=== PATIENT | female | born 1965 | race Caucasian/White ===

== ENCOUNTER 2023-04-17 14:20 | Outpatient (REF) | payer OTHER, SELFPAY ==
[2023-04-20 05:34] LABS: HPV mRNA E6/E7 rflx Not Detected (Not Detected)
== END 2023-04-17 14:21 | disposition home or self-care (01) ==
LOC: HO.LNP 14:20
PROVIDERS: PCP Nurse Practitioner Family; Visit Provider Obstetrics & Gynecology
DX: Z12.4 Encounter for screening for malignant neoplasm of cervix (principal); Z11.51 Encounter for screening for human papillomavirus (HPV); N95.0 Postmenopausal bleeding
CPT/HCPCS: 87624; 88142; 99202

== ENCOUNTER 2023-04-29 13:48 | Outpatient (REF) | payer OTHER, SELFPAY ==
--- NOTE | ~2023-04-29 | US_ITS ---
EXAMINATION: US PELVIS CLINICAL INFORMATION: Postmenopausal bleeding COMPARISON: None available. TECHNIQUE: Ultrasound of the pelvis is performed using both transabdominal and transvaginal transducers along with Doppler. Transvaginal imaging is performed due to inadequate visualization transabdominally. FINDINGS: The uterus is anteverted and measures 10.8 x 7.3 x 7 cm in dimension. There is a large central echogenic lesion in the body of the uterus suggestive of a submucosal fibroid. This measures 6 x 5.6 x 6.2 cm. No other focal uterine lesion in the endometrium is obscured due to fibroid. The ovaries are not seen. There is no fluid in the pelvis. US/US pelvic and transvaginal IMPRESSION: Limited exam. 6 cm central echogenic uterine body lesion probably representing a submucosal fibroid. Endometrium and ovaries not seen.
== END 2023-04-29 13:49 | disposition home or self-care (01) ==
LOC: HO.HMGCX 13:48
PROVIDERS: PCP Nurse Practitioner Family; Visit Provider Obstetrics & Gynecology
DX: N95.0 Postmenopausal bleeding (principal)
CPT/HCPCS: 76830; 76856

== ENCOUNTER 2023-05-21 15:38 | Outpatient (REF) | payer OTHER, SELFPAY ==
--- NOTE | ~2023-05-21 | MM_ITS ---
EXAMINATION: MM SCREENING DIGITAL BREAST TOMOSYNTHESIS, BILATERAL CLINICAL INFORMATION: Screening. Asymptomatic. The lifetime risk of breast cancer based on the Tyrer-Cuzick Model is 5.9%. COMPARISON: Mammography: Baseline exam. No prior. TECHNIQUE: Digital breast tomosynthesis is performed in both the craniocaudal and mediolateral oblique views along with computer-aided detection (CAD). Synthesized 2D images are generated from the tomosynthesis. FINDINGS: The breasts are almost entirely fatty (ACR BI-RADS breast composition Category a). Within the left breast, upper outer quadrant, anterior one third, there is a 9 mm circumscribed mass for which ultrasound is recommended. There is otherwise no suspicious calcifications, mass, or region of architectural distortion in either breast. MM/MM tomosynthesis screening BI IMPRESSION: 9 mm mass in the upper outer left breast anterior one third as detailed. Diagnostic ultrasound recommended for further evaluation. No suspicious finding in the right breast. ASSESSMENT: BI-RADS BI-RADS 0 - Incomplete: Needs additional Imaging. RECOMMENDATION: 1. Targeted left breast ultrasound upper outer quadrant anterior one third. 2. Radiology department staff will contact the patient for additional imaging. Additional Imaging required This examination should not preclude the clinical evaluation of a suspicious palpable abnormality. This patient's information was entered into a reminder system with a target due date for their next mammogram.
== END 2023-05-21 15:39 | disposition home or self-care (01) ==
LOC: HO.MAMMO 15:38
PROVIDERS: PCP Nurse Practitioner Family; Visit Provider Obstetrics & Gynecology
DX: Z12.31 Encounter for screening mammogram for malignant neoplasm of breast (principal)
CPT/HCPCS: 77063; 77067

== ENCOUNTER → 2023-05-21 16:00 | Outpatient (BNV) | payer OTHER, SELFPAY | PROVIDERS: PCP Nurse Practitioner Family; Visit Provider Radiology Diagnostic Radiology | DX: Z12.31 Encounter for screening mammogram for malignant neoplasm of breast (principal) | CPT/HCPCS: 77063; 77067 ==

== ENCOUNTER 2023-05-23 10:37 | Outpatient (AMB) | payer OTHER, SELFPAY ==
--- NOTE | 2023-05-23 10:38 | MHC.OFFVIS ---
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 Sister Hemochromatosis Daughter Overdose Maternal Grandmother Myocardial infarction Office Procedures Endometrial Biopsy Details: The patient was counseled regarding the indication and benefits of endometrial sampling to rule out endometrial pathology including not limited to endometrial hyperplasia or endometrial cancer and others; The alternatives (Either do nothing vs. hysteroscopy D&C) & the risks were discussed with the patient including but not limited: pain, uterine perforation, bleeding, infection, possible injury to bladder, bowel, ureter, possible need for blood transfusion with all its possible risks. The patient verbalized understanding all questions answered and signed consent. The patient was placed into the dorsal lithotomy position; a speculum was inserted in the vagina. Using aseptic technique for the procedure, the cervix was cleansed with Betadine. The anterior lip of the cervix was grasped with a single tooth tenaculum. The uterus was sounded to 9 cm with a 4 mm Pipelle was used. Tissues samples were obtained and placed in formalin, in a patient labeled container and sent to the pathology department. At the end of the procedure, there was minimal bleeding noted The patient tolerated the procedure well and was discharged in good condition with the following instructions: Nothing in the vagina until the bleeding stops. No sex until the bleeding stops, to call if any of the following occurs: fever (>100.4), flu-like symptoms, abdominal pain, heavy bleeding, four smelling vaginal discharge. The patient was instructed to schedule a Follow up appointment in 2 weeks to discuss pathology results of the biopsy and treatment options. This note was generated with a voice recognition program. Some errors may have been overlooked during the review of this note. Sometimes these errors may affect the content or meaning of a given sentence. [id number] Biopsy Assessment & Plan Assessment & Plan Orders: Orders AMB Endometrial Biopsy Today N95.0 - Postmenopausal bleeding Coding Level of Care Code Procedure Only Diagnoses CPT Codes Endometrial Biopsy - CPT: 40535-Zoptjoejikp Biopsy ([id number])
[2023-05-23 10:42] VITALS: BP 142/100; BMI 42.9
== END 2023-05-23 11:06 | disposition home or self-care (01) ==
LOC: HO.HWS 10:37
PROVIDERS: PCP Nurse Practitioner Family; Visit Provider Obstetrics & Gynecology
DX: N95.0 Postmenopausal bleeding (principal)
CPT/HCPCS: 58100

== ENCOUNTER 2023-05-23 10:37 | Outpatient (REF) | payer OTHER, SELFPAY | END 2023-05-23 10:38 | disposition home or self-care (01) | LOC: HO.LNP 10:37 | PROVIDERS: PCP Nurse Practitioner Family; Visit Provider Obstetrics & Gynecology | DX: N95.0 Postmenopausal bleeding (principal) | CPT/HCPCS: 58100; 88305 ==

== ENCOUNTER 2023-06-04 09:04 | Outpatient (AMB) | payer OTHER, SELFPAY ==
[2023-06-04 09:09] VITALS: BP 138/89; BMI 42.8
--- NOTE | 2023-06-04 09:09 | A.OFFVIS_ITS ---
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 The pathology showed the following: Endometrium, biopsy:? Superficial strips of benign endometrial and endocervical epithelium; abundant blood. Pelvic ultrasound showed the following: The uterus is anteverted and measures 10.8 x 7.3 x 7 cm in dimension. There is a large central echogenic lesion in the body of the uterus suggestive of a submucosal fibroid. This measures 6 x 5.6 x 6.2 cm. No other focal uterine lesion in the endometrium is obscured due to fibroid. The ovaries are not seen. There is no fluid in the pelvis. PFSH Surgical History H/O gastric bypass Family History Father Hypertension Mother No problems noted. Sister Hemochromatosis Daughter Overdose Maternal Grandmother Myocardial infarction Female Reproductive History Menstrual control method: none Date of last pap smear: 04/18/23 Review of Systems Const All systems reviewed & are unremarkable except as noted in HPI and below Reports as per HPI and Reports no additional complaints GI Reports no additional complaints Reports no additional complaints Physical Exam Vital Signs: Last Vital Signs BP 138/89 06/04/23 09:09 BMI result Body Mass Index 42.8 Assessment & Plan Assessment & Plan (1) Postmenopausal bleeding: Code(s): N95.0 - Postmenopausal bleeding Plan: Discussed with the patient the results of the endometrial biopsy showing benign endometrium. Discussed with the patient the sensitivity, specificity, positive and negative predictive value, of endometrial biopsy in detecting endometrial pathology including but not limited to endometrial hyperplasia, cancer and other pathology; instructed the patient to call in case is vaginal bleeding bleeding recurs, the next step will be to proceed with a diagnostic hysteroscopy/D&C for further endometrial sampling evaluation to rule out endometrial pathology. All questions answered and the patient verbalized understanding and agreed with the plan. (2) Uterine myoma: Code(s): D25.9 - Leiomyoma of uterus, unspecified Plan: Discussed with the patient the findings on pelvic ultrasound & the risk of myosarcoma; discussed with the patient the options of treatment including expectant management versus hysterectomy; the pros and cons, risks benefits of each approach were discussed with the patient including the fact that in cases of myosarcoma, surgical treatment can lead to early diagnosis and positively affects the prognosis; after further discussion, the patient decided to proceed with expectant management. Will repeat pelvic ultrasound in 3 months. Instructions given to patient to call in case any of the following occurs: pressure symptoms, abnormal uterine bleeding, pelvic pain; and to schedule a 3 my office ultrasound follow-up appointment . All questions answered, the patient verbalized understanding and agreed with the plan . Orders: Orders US pelvic and transvaginal Today D25.9 - Leiomyoma of uterus, unspecified Coding Level of Care Code Est Pt Level 3 (85832) Diagnoses Postmenopausal bleeding N95.0 Uterine myoma D25.9
== END 2023-06-04 09:19 | disposition home or self-care (01) ==
LOC: HO.HWS 09:04
PROVIDERS: PCP Nurse Practitioner Family; Visit Provider Obstetrics & Gynecology
DX: N95.0 Postmenopausal bleeding (principal); D25.9 Leiomyoma of uterus, unspecified
CPT/HCPCS: 99213

== ENCOUNTER → 2023-06-04 09:04 | Outpatient (BNVA) | payer OTHER, SELFPAY | PROVIDERS: PCP Nurse Practitioner Family; Visit Provider Obstetrics & Gynecology | DX: N95.0 Postmenopausal bleeding (principal); D25.9 Leiomyoma of uterus, unspecified | CPT/HCPCS: 99212 ==

== ENCOUNTER → 2023-06-12 08:00 | Outpatient (BNV) | payer OTHER, SELFPAY | PROVIDERS: PCP Nurse Practitioner Family; Visit Provider Radiology Diagnostic Radiology | DX: N63.21 Unspecified lump in the left breast, upper outer quadrant (principal) | CPT/HCPCS: 76642 ==

== ENCOUNTER 2023-06-12 08:56 | Outpatient (REF) | payer OTHER, SELFPAY ==
--- NOTE | ~2023-06-12 | US_ITS ---
EXAMINATION: US DIAGNOSTIC ULTRASOUND BREAST, LEFT CLINICAL INFORMATION: Follow-up circumscribed small mass left breast anterior aspect 1:00 seen on baseline screening exam. COMPARISON: Screening mammography 05/21/2023. No prior ultrasound. TECHNIQUE: Ultrasound of the left breast is performed with real-time beltre scale imaging and color Doppler, with attention to the 1:00 axis. FINDINGS: Within the 1:00 axis of the left breast, approximately 6 cm from the nipple, there is an oval circumscribed hypoechoic mass with a hyperechoic fatty hilum measuring 7 x 3 x 9 mm, most consistent with a benign intramammary lymph node. No suspicious features are evident. This correlates well with the mammographic focus of concern. No additional abnormalities noted. Results were discussed directly with the patient at time of the visit. US/US breast LT limited mamm only IMPRESSION: Probably benign intramammary lymph node left breast 1:00 axis.Out of an abundance of caution, a 6 month interval follow-up left breast ultrasound recommended to ensure stability. ASSESSMENT: BI-RADS 3: Probably Benign RECOMMENDATION: Diagnostic sonography in 6 months.
== END 2023-06-12 08:57 | disposition home or self-care (01) ==
LOC: HO.MAMMO 08:56
PROVIDERS: PCP Nurse Practitioner Family; Visit Provider Obstetrics & Gynecology
DX: N63.22 Unspecified lump in the left breast, upper inner quadrant (principal)
CPT/HCPCS: 76642

== ENCOUNTER 2023-06-13 08:59 | Outpatient (AMB) | payer OTHER, SELFPAY ==
[2023-06-13 09:14] VITALS: BP 140/82; PULSE 70; O2SAT 98; BMI 41.0
--- NOTE | 2023-06-13 09:14 | MHC.PC.OV ---
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 Pt used to see Dr. Farah. Corporate Safety Director Required: No Accompanied by: Self / Same As Patient Allergies No Known Allergies Allergy (Verified 06/13/23 09:30) Medication List - Last Reconciled 06/13/23 by CLARA Acosta buprenorphine-naloxone 8-2 mg (Suboxone) 20 mg sublingual DAILY Tobacco use date assessed: 06/13/23 Dental Screening Dental Screen Date: 06/13/23 Did you have a dental visit in the last 12 months?: No Did you have a dental problem in the last 6 months where you did not have access to dental care?: No Was dental information given to patient?: Yes HPI HPI Comments History of Present Illness Details 57-year-old female past medical history significant for hypertension, opiate abuse and uterine myoma. Previous patient of Dr. Winters last seen 3 years ago presents today to reestablish care. Patient previously underwent bariatric surgery in [address] Peña at [facility]. Patient reports that she never went for skin removal surgery following this. Patient reports that time she does get rashes underneath her pannis. Patient states in the process of trying to diet and exercise to decrease her BMI and would like to discuss referral for skin removal in the future. Patient reports past history of opiate abuse Percocets and did try heroin, patient has been on Suboxone for about 8 years currently follows with healthy living clinic. Review of the notes patient currently being followed by Dr. Pnieda obstetrics gynecology physician for postmenopausal bleeding and uterine myoma. Patient reports has been out of her blood pressure medication for quite some time and has been sharing her significant other's blood pressure med as a are both on the same medication. Refill sent on HCTZ 25 mg daily. Mammogram: It is 06/05 which required additional imaging IMPRESSION: Probably benign intramammary lymph node left breast 1:00 axis.Out of an abundance of caution, a 6 month interval follow-up left breast ultrasound recommended to ensure stability. ? ASSESSMENT:? BI-RADS 3: Probably Benign Eye exam: Recommended every couple years Patient reports has never had colonoscopy screening, referral entered to gastroenterology for colonoscopy. [facility] Medical History (Updated 06/13/23 @ 09:51 by CLARA Acosta) Hypertension Opioid abuse Surgical History H/O gastric bypass Family History (Updated 06/13/23 @ 09:33 by CLARA Acosta) Father Hypertension Mother No problems noted. Sister Hemochromatosis Daughter Overdose Paternal Grandmother Myocardial infarction Social History (Updated 06/13/23 @ 09:35 by CLARA Acosta) Housing: Apartment Alcohol intake: current Alcohol intake frequency: holidays/special occasions only Patient Tobacco Use Status: Former Tobacco user Tobacco use type: Cigarette e-Cigarette/Vaping Use: Never Used service: No Current occupational status: unemployed Cognitive needs: No Hearing needs: No Vision needs: No Questionnaire PHQ-9 Over the last 2 weeks, how often have you been bothered by any of the following problems? 1. Little interest or pleasure in doing things: not at all 2. Feeling down, depressed, or hopeless: not at all 3. Trouble falling or staying asleep, or sleeping too much: not at all 4. Feeling tired or having little energy: not at all 5. Poor appetite or overeating: not at all 6. Feeling bad about yourself - or that you are a failure or have let yourself or your family down: not at all 7. Trouble concentrating on things, such as reading the newspaper or watching television: not at all 8. Moving or speaking so slowly that other people could have noticed. Or the opposite - being so fidgety or restless that you have been moving around a lot more than usual: not at all 9. Thoughts that you would be better off or of hurting yourself in some way: not at all Total score: 0 Depression Screening Interpretation: Negative 69487 - PHQ-9 Billing: Yes Source: Developed by Drs. Damon Rock, Dionne Ahmadi, Rishabh Rascon and colleagues, with an educational myesha from [employer]. Thrive Questionnaire Date Thrive assessed: 06/13/23 I am a: Patient What is your living situation today?: I have a steady place to live Within the past 12 months, did the food you bought not last and you didn't have the money to get more?: Never true Within the past 12 months, did you worry whether your food would run out before you got money to buy more?: Never true Do you have trouble paying for medicines?: No Do you have trouble getting transportation to medical appointments?: No Do you have trouble paying your heating and electricity bill?: No Do you have trouble taking care of your child, family member or friend?: No Do you have trouble with day-to-day activities such as bathing, preparing meals, shopping, managing finances, etc.?: No Are you currently unemployed and looking for a job?: No Are you interested in more education?: No Please select the resources that you would like help with: None Currently or been in a relationship where the following occur: no concerns reported AUDIT C Alcohol Use Questionnaire (AUDIT-C) 1. How often do you have a drink containing alcohol?: Never 3. How often do you have six or more drinks on one occasion?: Never Total Score: 0 SAUL-7 AMB Questionnaire SAUL-7 Date SAUL - 7 assessed: 06/13/23 Feeling nervous, anxious, or on edge: 0 = Not at all Not being able to stop or control worryin = Not at all Worrying too much about different things: 0 = Not at all Trouble relaxin = Not at all Being so restless that it is hard to sit still: 0 = Not at all Becoming easily annoyed or irritable: 0 = Not at all Feeling afraid as if something awful might happen: 0 = Not at all Total SAUL-7 score (0-4 normal; 5-9 mild; 10-14 moderate; 15-21 severe): 0 Source: Developed by Drs. Damon Rock, Dionne Ahmadi, Rishabh Rascon and colleagues, with an educational myesha from [employer]. SAUL-7 Assessment Billing SAUL-7 Assessment Tool: SAUL-7 Assessment 52137 Review of Systems Const Denies chills, Denies fatigue, Denies fever(s) and Denies poor appetite Eyes Denies no additional complaints ENT Reports Normal hearing present Card Denies chest pain, Denies syncope, Denies rapid heart rate and Denies dyspnea Resp Denies cough and Denies dyspnea GI Denies change in stool character, Denies constipation, Denies diarrhea, Denies nausea and Denies vomiting Denies urinary frequency, Denies dysuria and Denies urinary urgency Neuro Reports Normal hearing present, Denies confusion and Denies syncope Psych Denies confusion Endo Denies fatigue Physical exam (Primary Care) Vital Signs: Last Vital Signs Pulse 70 06/13/23 09:14 BP 140/82 H 06/13/23 09:14 Pulse Ox 98 06/13/23 09:14 Oxygen Delivery Method Room Air 06/13/23 09:14 BMI result Body Mass Index 41.0 Tobacco/Smoking Status: Tobacco use Status Tobacco use date assessed 06/13/23 06/13/23 09:24 Patient Tobacco Use Status Former Tobacco user 06/13/23 09:35 Tobacco use type Cigarette 06/13/23 09:35 e-Cigarette/Vaping Use Never Used 06/13/23 09:35 PHQ-9: PHQ-9 Score PHQ-9: Total score 0 06/13/23 09:36 Depression Screening Interpretation: Negative Thrive Assessment: Date of Thrive Assessment Date Thrive assessed 06/13/23 06/13/23 09:24 Currently or been in a relationship where the following occur: no concerns reported Const General: No confusion Orientation/consciousness: No confusion HENMT Head: Yes normocephalic and Yes atraumatic Eyes Conjunctivae: conjunctivae normal Chest Chest palpation & inspection: normal inspection of the chest Resp Effort & Inspection: normal respiratory effort Auscultation: clear to auscultation bilaterally, no crackles, no rhonchi and no wheezes Cardio Rate: regular rate Rhythm: regular rhythm Heart sounds: S1 normal heart sound present and S2 normal heart sound present GI Inspection: Yes normal to inspection General: Yes no CVA tenderness Back/Spine/Pelvis Back: no CVA tenderness Neuro General: No confusion Cranial nerves: Yes Normal hearing present Extrem General: No edema Assessment and Plan Assessment & Plan (1) Hypertension: Code(s): I10 - Essential (primary) hypertension Plan: Hydrochlorothiazide 25 mg daily sent to patient's pharmacy. Follow low-salt diet and exercise. (2) Uterine myoma: Code(s): D25.9 - Leiomyoma of uterus, unspecified (3) Morbid obesity with BMI of 40.0-44.9, adult: Code(s): E66.01 - Morbid (severe) obesity due to excess calories; Z68.41 - Body mass index [BMI] 40.0-44.9, adult Plan: Diet and exercise to reduce BMI. Plan Follow-up in 3 for physical exam Orders: Orders Complete Blood Count Auto Diff Today Z13.0 - Encounter for screening for diseases of the blood and blood-forming organs and certain disorders involving the immune mechanism Comprehensive Harrison. Panel Fast Today I10 - Essential (primary) hypertension Lipid Panel Today Z13.220 - Encounter for screening for lipoid disorders TSH reflex Free T4 Today Z13.29 - Encounter for screening for other suspected endocrine disorder Referrals Gastroenterology Referral Z12.11 - Encounter for screening for malignant neoplasm of colon Medications: New hydrochlorothiazide 25 mg PO DAILY 30 tabs 3RF I10 - Essential (primary) hypertension Coding Level of Care Code New Pt Level 3 (50893) Diagnoses Hypertension I10 Uterine myoma D25.9 Morbid obesity with BMI of 40.0-44.9, adult E66.01; Z68.41 Additional Codes SAUL-7 Assessment Billing - SAUL-7 Assessment Tool: SAUL-7 Assessment 08836 ([id number])
== END 2023-06-13 09:45 | disposition home or self-care (01) ==
PROVIDERS: PCP Nurse Practitioner Family; Visit Provider Nurse Practitioner Family
DX: I10 Essential (primary) hypertension (principal); D25.9 Leiomyoma of uterus, unspecified; E66.01 Morbid (severe) obesity due to excess calories; Z68.41 Body mass index [BMI] 40.0-44.9, adult
CPT/HCPCS: 99203

== ENCOUNTER 2023-07-30 12:46 | Outpatient (AMB) | payer OTHER, SELFPAY ==
--- NOTE | 2023-07-30 12:53 | A.OFFVIS_ITS ---
Intake Vital Signs 07/30/23 12:55 Height 5 ft 5 in Weight 243 lb BMI 40.4 BP 144/74 H Intake Visit Reasons: vaginal bleeding Sanitation Director Required: No Information Interpreted: non-clinical & clinical Extrusion Technician: Extrusion Technician Present (Aidyn) Allergies No Known Allergies Allergy (Verified 07/30/23 12:57) Is last menstrual period known: No Post menopausal: Yes Patient : No HPI HPI Comments History of Present Illness Details Presenting with recurrence of postmenopausal bleeding. Ultrasound done in 05/05 showed the following: The uterus is anteverted and measures 10.8 x 7.3 x 7 cm in dimension. There is a large central echogenic lesion in the body of the uterus suggestive of a submucosal fibroid. This measures 6 x 5.6 x 6.2 cm. No other focal uterine lesion in the endometrium is obscured due to fibroid. The ovaries are not seen. There is no fluid in the pelvis Endometrial biopsy done in 06/05 showed the following: Superficial strips of benign endometrial and endocervical epithelium; abundant blood Last co testing was done in 05/05 was negative PFSH Medical History Opioid abuse Hypertension Surgical History H/O gastric bypass Family History Father Hypertension Mother No problems noted. Sister Hemochromatosis Daughter Overdose Paternal Grandmother Myocardial infarction Social History Housing: Apartment Alcohol intake: current Alcohol intake frequency: holidays/special occasions only Patient Tobacco Use Status: Former Tobacco user Tobacco use type: Cigarette e-Cigarette/Vaping Use: Never Used Patient : No service: No Current occupational status: unemployed Cognitive needs: No Hearing needs: No Vision needs: No Female Reproductive History Menstrual control method: none Physical Exam Vital Signs: Last Vital Signs BP 144/74 H 07/30/23 12:55 BMI result Body Mass Index 40.4 Office Procedures Endometrial Biopsy Details: The patient was counseled regarding the indication and benefits of endometrial sampling to rule out endometrial pathology including not limited to endometrial hyperplasia or endometrial cancer and others; The alternatives (Either do nothing vs. hysteroscopy D&C) & the risks were discussed with the patient including but not limited: pain, uterine perforation, bleeding, infection, possible injury to bladder, bowel, ureter, possible need for blood transfusion with all its possible risks. The patient verbalized understanding all questions answered and signed consent. The patient was placed into the dorsal lithotomy position; a speculum was inserted in the vagina. Using aseptic technique for the procedure, the cervix was cleansed with Betadine. The anterior lip of the cervix was grasped with a single tooth tenaculum. The uterus was sounded to 7 cm with a 4 mm Pipelle was used. Tissues samples were obtained and placed in formalin, in a patient labeled container and sent to the pathology department. At the end of the procedure, there was minimal bleeding noted The patient tolerated the procedure well and was discharged in good condition with the following instructions: Nothing in the vagina until the bleeding stops. No sex until the bleeding stops, to call if any of the following occurs: fever (>100.4), flu-like symptoms, abdominal pain, heavy bleeding, four smelling v aginal discharge. The patient was instructed to schedule a Follow up appointment in 2 weeks to discuss pathology results of the biopsy and treatment options. This note was generated with a voice recognition program. Some errors may have been overlooked during the review of this note. Sometimes these errors may affect the content or meaning of a given sentence. [id number]-Ldmuuuhbmae Biopsy Assessment & Plan Assessment & Plan (1) Postmenopausal bleeding: Comment: 6.2 cm submucosal myoma by ultrasound Code(s): N95.0 - Postmenopausal bleeding Plan: Repeat ultrasound to compare the size of previous myoma and treat accordingly. Instructions given the patient to schedule ultrasound follow-up appointment. Recommended to the patient that the next step is repeat endometrial sampling via hysteroscopy D&C possible polypectomy versus endometrial biopsy to r/o endometrial pathology including hyperplasia or cancer. All the pros and cons risks and benefits of each approach were discussed with the patient, endometrial biopsy being less invasive, office procedure withinability diagnose a polyp/myoma and removal versus hysteroscopy done under anesthesia more invasive , and possibility of diagnosing and endometrial polyp with the possibility of polypectomy/myomectomy. All questions were answered pt verbalized understanding and decided to proceed with endometrial biopsy. EMB done, see procedure Orders: Orders AMB Endometrial Biopsy Today N95.0 - Postmenopausal bleeding Coding Level of Care Code Est Pt Level 3 (30951) Procedure Only Diagnoses Postmenopausal bleeding N95.0 CPT Codes Endometrial Biopsy - CPT: 47855-Xmyegfhfpuu Biopsy ([id number])
[2023-07-30 12:55] VITALS: BP 144/74; BMI 40.4
== END 2023-07-30 13:33 | disposition home or self-care (01) ==
PROVIDERS: PCP Nurse Practitioner Family; Visit Provider Obstetrics & Gynecology
DX: N95.0 Postmenopausal bleeding (principal)
CPT/HCPCS: 58100; 99213

== ENCOUNTER 2023-07-30 12:46 | Outpatient (REF) | payer OTHER, SELFPAY | END 2023-07-30 12:47 | disposition home or self-care (01) | LOC: HO.LNP 12:46 | PROVIDERS: PCP Nurse Practitioner Family; Visit Provider Obstetrics & Gynecology | DX: N95.0 Postmenopausal bleeding (principal); D25.9 Leiomyoma of uterus, unspecified | CPT/HCPCS: 58100; 88305; 99212 ==

== ENCOUNTER 2023-07-31 15:44 | Outpatient (REF) | payer OTHER, SELFPAY ==
--- NOTE | ~2023-07-31 | US_ITS ---
EXAMINATION: US PELVIS CLINICAL INFORMATION: Leiomyoma of uterus, unspecified COMPARISON: Pelvic ultrasound 04/29/2023 TECHNIQUE: Ultrasound of the pelvis is performed using both transabdominal and transvaginal transducers along with Doppler. Transvaginal imaging is performed due to inadequate visualization transabdominally. FINDINGS: Uterus: The uterus is anteverted and measures 11.3 x 7.8 x 9.0. There is a large central echogenic lesion in the body the uterus consistent with a submucosal fibroid. This measures 6.4 x 6.3 x 6.4 cm, previously measured 6.0 x 5.6 x 6.2 cm, difference in size likely technical in origin. The endometrium is as obscured by the large fibroid.: The ovaries are not seen. There is no free fluid within the pelvis. US/US pelvic and transvaginal IMPRESSION: 6.4 cm central echogenic uterine body lesion, most likely representing a submucosal fibroid. The endometrium and ovaries are not seen.
== END 2023-07-31 15:45 | disposition home or self-care (01) ==
LOC: HO.US 15:44
PROVIDERS: PCP Nurse Practitioner Family; Visit Provider Obstetrics & Gynecology
DX: D25.9 Leiomyoma of uterus, unspecified (principal)
CPT/HCPCS: 76830; 76856

== ENCOUNTER 2023-09-17 13:22 | Outpatient (AMB) | payer OTHER, SELFPAY ==
--- NOTE | 2023-09-17 13:34 | A.OFFVIS_ITS ---
Intake Vital Signs 09/17/23 13:38 Height 5 ft 5 in Weight 242 lb 8.136 oz BMI 40.4 BP 120/70 Intake Visit Reasons: US Follow up Conveyor Mechanic Required: No Information Interpreted: non-clinical & clinical Accompanied by: Daughter Allergies No Known Allergies Allergy (Verified 09/17/23 13:39) Post menopausal: Yes HPI HPI Comments History of Present Illness Details Presenting for ultrasound follow-up and endometrial biopsy. The pathology showed the following: Predominantly blood with scant strips of benign inactive endometrium and benign endocervical glandular epithelium (see comment). Comment: Although no atypia or carcinoma is seen, the tissue is very scant and may not be equal opportunity representative of the endometrium Pelvic ultrasound repeated in 08/05 showed the following: Uterus: The uterus is anteverted and measures 11.3 x 7.8 x 9.0. There is a large central echogenic lesion in the body the uterus consistent with a submucosal fibroid. This measures 6.4 x 6.3 x 6.4 cm, previously measured 6.0 x 5.6 x 6.2 cm, difference in size likely technical in origin. The endometrium is as obscured by the large fibroid.: The ovaries are not seen. There is no free fluid within the pelvis. [facility] Medical History Opioid abuse Hypertension Surgical History H/O gastric bypass Family History Father Hypertension Mother No problems noted. Sister Hemochromatosis Daughter Overdose Paternal Grandmother Myocardial infarction Social History Housing: Apartment Alcohol intake: current Alcohol intake frequency: holidays/special occasions only Patient Tobacco Use Status: Former Tobacco user Tobacco use type: Cigarette e-Cigarette/Vaping Use: Never Used service: No Current occupational status: unemployed Cognitive needs: No Hearing needs: No Vision needs: No Review of Systems Const All systems reviewed & are unremarkable except as noted in HPI and below Reports as per HPI and Reports no additional complaints GI Reports no additional complaints Reports no additional complaints Physical Exam Vital Signs: Last Vital Signs BP 120/70 09/17/23 13:38 BMI result Body Mass Index 40.4 Office Procedures Endometrial Biopsy Details: The patient was counseled regarding the indication and benefits of endometrial sampling to rule out endometrial pathology including not limited to endometrial hyperplasia or endometrial cancer and others; The alternatives (Either do nothing vs. hysteroscopy D&C) & the risks were discussed with the patient including but not limited: pain, uterine perforation, bleeding, infection, possible injury to bladder, bowel, ureter, possible need for blood transfusion with all its possible risks. The patient verbalized understanding all questions answered and signed consent. The patient was placed into the dorsal lithotomy position; a speculum was inserted in the vagina. Using aseptic technique for the procedure, the cervix was cleansed with Betadine. The anterior lip of the cervix was grasped with a single tooth tenaculum. The uterus was sounded to 7 cm with a 4 mm Pipelle was used. Tissues samples were obtained and placed in formalin, in a patient labeled container and sent to the pathology department. At the end of the procedure, there was minimal bleeding noted The patient tolerated the procedure well and was discharged in good condition with the following instructions: Nothing in the vagina until the bleeding stops. No sex until the bleeding stops, to call if any of the following occurs: fever (>100.4), flu-like symptoms, abdominal pain, heavy bleeding, four smelling va ginal discharge. The patient was instructed to schedule a Follow up appointment in 2 weeks to discuss pathology results of the biopsy and treatment options. This note was generated with a voice recognition program. Some errors may have been overlooked during the review of this note. Sometimes these errors may affect the content or meaning of a given sentence. [id number] Biopsy Assessment & Plan Assessment & Plan (1) Uterine myoma: Code(s): D25.9 - Leiomyoma of uterus, unspecified Plan: Discussed with the patient the results of the ultrasound and the size of the myomas has mild increased in size with possible technical error in measurement. Discussed with the patient risk of myosarcoma and symptoms that are caused by myomas including but not limited to pelvic pain, pressure symptoms, abnormal uterine bleeding. In addition discussed with the patient options of treatment for myomas including: Serial ultrasounds periodically to follow-up on the size of the myoma versus surgical treatment including hysterectomy. All pros and cons, risks and benefits of all options were discussed with the patient. The patient understands that delay in surgical treatment in case of myosarcoma can affect her prognosis, after further discussion, the patient decided to think about it and get back to us next visit (2) Postmenopausal bleeding: Comment: EMB with scant tissue may not be equal opportunity representative of the endometrial cavity Code(s): N95.0 - Postmenopausal bleeding Plan: Discussed with the patient the results the pathology showing scant tissues and might not be equal opportunity representative of the endometrial cavity, recommended repeat endometrial sampling via office EMB versus hysteroscopy D&C possible polypectomy myomectomy. All pros and cons, risks and benefits of each approach were discussed with the patient, the patient decided to proceed with endometrial biopsy. EMB done, see procedure note. Orders: Orders AMB Endometrial Biopsy Today N95.0 - Postmenopausal bleeding Coding Level of Care Code Est Pt Level 3 (62810) Procedure Only Diagnoses Uterine myoma D25.9 Postmenopausal bleeding N95.0 CPT Codes Endometrial Biopsy - CPT: 36096-Ihispikeshb Biopsy ([id number])
[2023-09-17 13:38] VITALS: BP 120/70; BMI 40.4
== END 2023-09-17 14:24 | disposition home or self-care (01) ==
PROVIDERS: PCP Nurse Practitioner Family; Visit Provider Obstetrics & Gynecology
DX: D25.9 Leiomyoma of uterus, unspecified (principal); N95.0 Postmenopausal bleeding
CPT/HCPCS: 58100; 99213

== ENCOUNTER 2023-09-17 13:22 | Outpatient (REF) | payer OTHER, SELFPAY | END 2023-09-17 13:23 | disposition home or self-care (01) | LOC: HO.LNP 13:22 | PROVIDERS: PCP Nurse Practitioner Family; Visit Provider Obstetrics & Gynecology | DX: N95.0 Postmenopausal bleeding (principal); D25.9 Leiomyoma of uterus, unspecified | CPT/HCPCS: 58100; 88305; 99212 ==

== ENCOUNTER 2023-10-17 07:45 | Outpatient (AMB) | payer OTHER, SELFPAY ==
--- NOTE | 2023-10-17 07:47 | MHC.OFFVIS ---
Intake Vital Signs 10/17/23 07:51 Height 5 ft 5 in Weight 242 lb 8.136 oz BMI 40.4 BP 120/68 Intake Visit Reasons: EMB Results Allergies No Known Allergies Allergy (Verified 09/17/23 13:39) HPI HPI Comments History of Present Illness Details Presenting for follow-up post EMB doing well with no complaints. The pathology showed the following: Endometrium, biopsy: Superficial fragments of benign endometrium and few strips of endocervical epithelium within normal limits; abundant blood; no atypia identified PFSH Medical History Opioid abuse Hypertension Surgical History H/O gastric bypass Family History Father Hypertension Mother No problems noted. Sister Hemochromatosis Daughter Overdose Paternal Grandmother Myocardial infarction Social History Housing: Apartment Alcohol intake: current Alcohol intake frequency: holidays/special occasions only Patient Tobacco Use Status: Former Tobacco user Tobacco use type: Cigarette e-Cigarette/Vaping Use: Never Used service: No Current occupational status: unemployed Cognitive needs: No Hearing needs: No Vision needs: No Review of Systems Const All systems reviewed & are unremarkable except as noted in HPI and below Reports as per HPI and Reports no additional complaints GI Reports no additional complaints Reports no additional complaints Physical Exam Vital Signs: Last Vital Signs BP 120/68 10/17/23 07:51 BMI result Body Mass Index 40.4 Assessment & Plan Assessment & Plan (1) Postmenopausal bleeding: Code(s): N95.0 - Postmenopausal bleeding Plan: Discussed with the patient the results of the endometrial biopsy showing benign endometrium. Discussed with the patient the sensitivity, specificity, positive and negative predictive value, of endometrial biopsy in detecting endometrial pathology including but not limited to endometrial hyperplasia, cancer and other pathology; instructed the patient to call in case is vaginal bleeding bleeding recurs, the next step will be to proceed with a diagnostic hysteroscopy/D&C for further endometrial sampling evaluation to rule out endometrial pathology. All questions answered and the patient verbalized understanding and agreed with the plan. Coding Level of Care Code Est Pt Level 3 (26070) Diagnoses Postmenopausal bleeding N95.0
[2023-10-17 07:51] VITALS: BP 120/68; BMI 40.4
== END 2023-10-17 10:15 | disposition home or self-care (01) ==
PROVIDERS: PCP Nurse Practitioner Family; Visit Provider Obstetrics & Gynecology
DX: N95.0 Postmenopausal bleeding (principal)
CPT/HCPCS: 99213

== ENCOUNTER → 2023-10-17 07:45 | Outpatient (BNVA) | payer OTHER, SELFPAY | PROVIDERS: PCP Nurse Practitioner Family; Visit Provider Obstetrics & Gynecology | DX: N95.0 Postmenopausal bleeding (principal) | CPT/HCPCS: 99212 ==

== ENCOUNTER 2023-12-17 10:44 | Outpatient (REF) | payer OTHER, SELFPAY ==
--- NOTE | ~2023-12-17 | US_ITS ---
EXAMINATION: US DIAGNOSTIC ULTRASOUND BREAST, LEFT CLINICAL INFORMATION: Follow-up left breast probable benign intramammary lymph node 1:00 axis, 6 cm from the nipple, seen on prior exam. COMPARISON: 06/12/2023 left breast targeted ultrasound, and 05/21/2023 bilateral mammography. TECHNIQUE: Ultrasound of the breast is performed with real-time beltre scale imaging and color Doppler. FINDINGS: Within the left breast, 1:00 axis, 6 cm from the nipple, there is a stable benign appearing intramammary lymph node measuring 7 x 4 x 11 mm, with prominent normal fatty hilum, and non-thickened cortex. This is completely unchanged from the prior examination. Results are provided to the patient at time of visit by the technologist. US/US breast LT limited mamm only IMPRESSION: Stable benign intramammary lymph node left breast 1:00 axis. No findings suspicious for malignancy. Finding is benign, no further follow-up recommended. Recommend the patient resume routine annual screening mammography. ASSESSMENT: BI-RADS 2: Benign RECOMMENDATION: Routine annual mammography screening. This patient's information was entered into a reminder system with a target due date for their next mammogram.
== END 2023-12-17 10:45 | disposition home or self-care (01) ==
LOC: HO.MAMMO 10:44
PROVIDERS: PCP Nurse Practitioner Family; Visit Provider Obstetrics & Gynecology
DX: N63.21 Unspecified lump in the left breast, upper outer quadrant (principal)
CPT/HCPCS: 76642

== ENCOUNTER → 2023-12-17 11:00 | Outpatient (BNV) | payer OTHER, SELFPAY | PROVIDERS: PCP Nurse Practitioner Family; Visit Provider Radiology Diagnostic Radiology | DX: N60.82 Other benign mammary dysplasias of left breast (principal) | CPT/HCPCS: 76642 ==

== ENCOUNTER 2024-01-13 09:48 | Outpatient (AMB) | payer OTHER, SELFPAY ==
[2024-01-13 09:50] VITALS: BP 120/70; BMI 40.3
--- NOTE | 2024-01-13 09:50 | A.OFFVIS_ITS ---
Intake Vital Signs 01/13/24 09:50 Height 5 ft 5 in Weight 242 lb BMI 40.3 BP 120/70 Intake Visit Reasons: PMB Intake Note: PMB on 01/09/24 Thermometer Tester: Thermometer Tester Present ([place]) Allergies No Known Allergies Allergy (Verified 01/13/24 09:50) Post menopausal: Yes HPI HPI Comments History of Present Illness Details Presenting complaining of an episode of vaginal bleeding occur few days ago followed by continue spotting. Last EMB was done in 10/05, the pathology report showed the following: Endometrium, biopsy: Superficial fragments of benign endometrium and few strips of endocervical epithelium within normal limits; abundant blood; no atypia identified Last ultrasound was done in 08/05, showed the following: Uterus: The uterus is anteverted and measures 11.3 x 7.8 x 9.0. There is a large central echogenic lesion in the body the uterus consistent with a submucosal fibroid. This measures 6.4 x 6.3 x 6.4 cm, previously measured 6.0 x 5.6 x 6.2 cm, difference in size likely technical in origin. The endometrium is as obscured by the large fibroid.: The ovaries are not seen. There is no free fluid within the pelvis. Last co testing was done in 05/05 was negative PFSH Medical History Opioid abuse Hypertension Surgical History H/O gastric bypass Family History Father Hypertension Mother No problems noted. Sister Hemochromatosis Daughter Overdose Paternal Grandmother Myocardial infarction Social History Housing: Apartment Alcohol intake: current Alcohol intake frequency: holidays/special occasions only Patient Tobacco Use Status: Former Tobacco user Tobacco use type: Cigarette e-Cigarette/Vaping Use: Never Used service: No Current occupational status: unemployed Cognitive needs: No Hearing needs: No Vision needs: No Review of Systems Const All systems reviewed & are unremarkable except as noted in HPI and below Physical Exam Vital Signs: Last Vital Signs BP 120/70 01/13/24 09:50 BMI result Body Mass Index 40.3 General: Yes no CVA tenderness External Female Exam: normal external appearance and normal appearance of the urethra Speculum Exam - Vagina: normal appearance of the vagina, normal palpation, no lesions and no masses Speculum Exam - Cervix: normal appearance of the cervix, normal palpation, no lesions, no masses and nontender Bimanual exam- vagina & uterus: normal bimanual exam, normal palpation, uterine size normal, normal palpation, uterine shape normal, No Cervical tenderness present and non-tender Bimanual Exam- Adnexa, other: normal adnexae Back/Spine/Pelvis Back: no CVA tenderness Results AMB Urinalysis, Automated UA Leukoctes 0 Jannet/uL Last Edit by HILDA Herring on 01/13/24 10:02 UA Nitrite Negative Last Edit by Geneva Kruger Bobbi on 01/13/24 10:02 UA Urobilinogen 0 mg/dL Last Edit by Geneva Kruger Bobbi on 01/13/24 10:0 2 UA Protein 0 mg/dL Last Edit by HILDA Herring on 01/13/24 10:02 UA pH 7.5 Last Edit by Geneva Kruger [facility] on 01/13/24 10:02 UA Blood 0 Abdoul/uL Last Edit by HILDA Herring on 01/13/24 10:02 UA Specific [place] 1.010 Last Edit by HILDA Herring on 01/13/24 10:02 UA Ketone Negative Last Edit by HILDA Herring on 01/13/24 10:02 UA Bilirubin 0 mg/dL Last Edit by Geneva Kruger Bobbi on 01/13/24 10:02 UA Glucose 0 mg/dL Last Edit by Geneva Kruger [facility] on 01/13/24 10:02 Results Reviewed Results Reviewed: Laboratory Last Values Urine pH (Auto) 7.5 01/13/24 10:01 Specific [place] (Auto) 1.010 01/13/24 10:01 Urine Protein (Auto) 0 mg/dL 01/13/24 10:01 Glucose (UA)(Auto) 0 mg/dL 01/13/24 10:01 Urine Ketones (Auto) Negative 01/13/24 10:01 Urine Blood (Auto) 0 Abdoul/uL 01/13/24 10:01 Urine Nitrite (Auto) Negative 01/13/24 10:01 Urine Bilirubin (Auto) 0 mg/dL 01/13/24 10:01 Urine Urobilinogen (Auto) 0 mg/dL 01/13/24 10:01 Leukocyte Esterase (Auto) 0 Jannet/uL 01/13/24 10:01 Assessment & Plan Assessment & Plan (1) Postmenopausal bleeding: Comment: Recurrent Code(s): N95.0 - Postmenopausal bleeding Plan: Discussed with the patient the differential diagnosis of post menopausal bleeding with normal pelvic exam including but not limited to, endometrial hyperplasia, cancer, polyps and other causes; recommended pelvic ultrasound & an endometrial sampling via hysteroscopy D&C possible polypectomy versus endometrial biopsy to r/o endometrial pathology including hyperplasia or cancer. All the pros and cons risks and benefits of each approach were discussed with the patient, endometrial biopsy being less invasive office procedure with less sensitivity and inability diagnose a polyp and removal versus hysteroscopy done under anesthesia more invasive more sensitive to endometrial cancer and possibility of diagnosing and endometrial polyp with the possibility of polypectomy. All questions were answered pt verbalized understanding and decided to think about it and get back to us next visit . Instructed the patient to schedule an ultrasound follow-up appointment in 2 weeks. Orders: Orders AMB Urinalysis Automated Today Z13.9 - Encounter for screening, unspecified US pelvic and transvaginal Today N95.0 - Postmenopausal bleeding Coding Level of Care Code Est Pt Level 3 (92812) Diagnoses Postmenopausal bleeding N95.0
== END 2024-01-13 10:46 | disposition home or self-care (01) ==
PROVIDERS: PCP Nurse Practitioner Family; Visit Provider Obstetrics & Gynecology
DX: N95.0 Postmenopausal bleeding (principal); Z13.9 Encounter for screening, unspecified
CPT/HCPCS: 99213

== ENCOUNTER → 2024-01-13 09:48 | Outpatient (BNVA) | payer OTHER, SELFPAY | PROVIDERS: PCP Nurse Practitioner Family; Visit Provider Obstetrics & Gynecology | DX: N95.0 Postmenopausal bleeding (principal) | CPT/HCPCS: 81003; 99212 ==

== ENCOUNTER 2024-01-21 13:19 | Outpatient (REF) | payer OTHER, SELFPAY ==
--- NOTE | ~2024-01-21 | US_ITS ---
EXAMINATION: US PELVIS COMPLETE CLINICAL INFORMATION: Postmenopausal bleeding COMPARISON: Pelvic ultrasound 07/31/2023 TECHNIQUE: Transabdominal and transvaginal imaging was performed. FINDINGS: The uterus is enlarged measuring 13.8 x 8.1 x 9.6 cm. A dominant transmural myoma with a submucosal component measuring 7.2 cm previously 6.4 cm. Nabothian cysts in the cervix. There is moderate volume of fluid within the endometrial canal. The endometrium appears irregularly thickened measuring up to 0.8 cm a more discrete 9 mm nodule in the fundal aspect of the endometrium. The ovaries were not identified sonographically. No adnexal mass. There is no pelvic free fluid. US/US pelvic and transvaginal IMPRESSION: 1. The endometrium appears irregularly thickened and nodular measuring up to 0.8 cm, which can be seen in the setting of endometrial carcinoma or endometrial hyperplasia with a more discrete 9 mm nodule in the fundal aspect of the endometrium, which may be related to the underlying etiology of the thickening or reflect a superimposed polyp. Recommend gynecologic referral for consideration of tissue sampling. 2. A dominant transmural myoma with a submucosal component measuring 7.2 cm. 3. The ovaries were not identified sonographically. The findings and recommendations were discussed with Nadege Goncalves LPN at the office of ordering provider Armando Pineda, at 1:56 PM 01/29/2024 with read back confirmation and it was ascertained that the content and urgency of the report was understood at the time of direct communication.
== END 2024-01-21 13:20 | disposition home or self-care (01) ==
LOC: HO.US 13:19
PROVIDERS: PCP Nurse Practitioner Family; Visit Provider Obstetrics & Gynecology
DX: N95.0 Postmenopausal bleeding (principal)
CPT/HCPCS: 76830; 76856

== ENCOUNTER 2024-01-30 13:19 | Outpatient (AMB) | payer OTHER, SELFPAY ==
--- NOTE | 2024-01-30 13:32 | A.OFFVIS_ITS ---
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 Pelvic ultrasound done recently showed the following: IMPRESSION: 1. The endometrium appears irregularly thickened and nodular measuring up to 0.8 cm, which can be seen in the setting of endometrial carcinoma or endometrial hyperplasia with a more discrete 9 mm nodule in the fundal aspect of the endometrium, which may be related to the underlying etiology of the thickening or reflect a superimposed polyp. Recommend gynecologic referral for consideration of tissue sampling. 2. A dominant transmural myoma with a submucosal component measuring 7.2 cm. 3. The ovaries were not identified sonographically. Last office EMB was done in 10/05 showed the following: Superficial fragments of benign endometrium and few strips of endocervical epithelium within normal limits; abundant blood; no atypia identified Last co testing done in 05/05 was negative PFSH Medical History Opioid abuse Hypertension Surgical History H/O gastric bypass Family History Father Hypertension Mother No problems noted. Sister Hemochromatosis Daughter Overdose Paternal Grandmother Myocardial infarction Social History Housing: Apartment Alcohol intake: current Alcohol intake frequency: holidays/special occasions only Patient Tobacco Use Status: Former Tobacco user Tobacco use type: Cigarette e-Cigarette/Vaping Use: Never Used service: No Current occupational status: unemployed Cognitive needs: No Hearing needs: No Vision needs: No Female Reproductive History Menstrual Date of last menstrual period: 08/11/20 Total pregnancies: 2 Full term: 2 Review of Systems Card Reports as per HPI and Reports no additional complaints Resp Reports as per HPI and Reports no additional complaints GI Reports as per HPI and Reports no additional complaints Reports as per HPI Physical Exam Const General: cooperative, healthy appearing and comfortable Resp Effort & Inspection: normal respiratory effort Auscultation: clear to auscultation bilaterally Percussion: percussion normal Cardio Palpation: normal PMI Rate: regular rate Rhythm: regular rhythm Heart sounds: no murmurs and no rubs Peripheral pulses: Peripheral pulses 2+ throughout GI Inspection: Yes normal to inspection Palpation (GI): Soft to palpation, nontender, no guarding, not rigid and No hepatosplenomegaly present Percussion: Yes normal to percussion Auscultation: normal bowel sounds Rectal Exam - Female: deferred Assessment & Plan Assessment & Plan (1) Postmenopausal bleeding: Comment: Recurrent Abnormal endometrium by ultrasound Large myoma with submucosal component Code(s): N95.0 - Postmenopausal bleeding Category: Medical Plan: Discussed with the patient the results of the ultrasound showing large myoma with submucosal component and an abnormal endometrium with possible endometrial polyp, recommended hysteroscopy D&C possible polypectomy/myomectomy. Discussed with the patient the procedure , all benefits and risks including but not limited to inability to complete the procedure , insufficient endometrial tissue for a complete evaluation of the endometrial cavity , bleeding, infection, possible need for blood transfusion with all its risk ( HIV,syphilis, Hepatitis, anaphylaxis shock, others..), injury to bladder, rectum, possible need for laparoscopy/laparotomy or hysterectomy. The patient verbalized understanding and signed the consent. Instructions given the patient to schedule a 2 week postoperative appointment (2) Uterine myoma: Code(s): D25.9 - Leiomyoma of uterus, unspecified Category: Medical Plan: Discussed with the patient the results of the ultrasound and the increase in the size of the myomas. Discussed with the patient risk of myosarcoma and symptoms that are caused by myomas including but not limited to pelvic pain, pressure symptoms, abnormal uterine bleeding. In addition discussed with the patient options of treatment for myomas including: Serial ultrasounds periodically to follow-up on the size of the myoma versus surgical treatment including hysterectomy . All pros and cons, risks and benefits of all options were discussed with the patient. The patient understands that delay in surgical treatment in case of myosarcoma can affect her prognosis, after further discussion, the patient decided to think about it and get back to us after hysteroscopy D&C possible polypectomy/myomectomy
[2024-01-30 13:34] VITALS: BP 138/80; BMI 40.0
== END 2024-01-30 15:11 | disposition home or self-care (01) ==
PROVIDERS: PCP Nurse Practitioner Family; Visit Provider Obstetrics & Gynecology
DX: N95.0 Postmenopausal bleeding (principal); D25.9 Leiomyoma of uterus, unspecified
CPT/HCPCS: 99213

== ENCOUNTER → 2024-01-30 13:19 | Outpatient (BNVA) | payer OTHER, SELFPAY | PROVIDERS: PCP Nurse Practitioner Family; Visit Provider Obstetrics & Gynecology | DX: N95.0 Postmenopausal bleeding (principal); D25.9 Leiomyoma of uterus, unspecified | CPT/HCPCS: 99212 ==

== ENCOUNTER 2024-02-07 10:46 | Day surgery (SDC) | payer OTHER, SELFPAY ==
--- NOTE | 2024-02-05 13:52 | HO.ANESPROP2 ---
Documented by User: Teresa Dunn NP 02/05/24 13:58 HPI - Anesthesia Eval Consult details Narrative: 58yo F for D&C Diagnostic Hysteroscopy,possible myomectomy,possible polypectomy Suboxone 16mg daily. T/C to patient 02/05/24. Will do 12mg in 3 divided doses daily preop starting 02/05/24. [facility] Active Problems Active Problems: All Active Problems Morbid obesity with BMI of 40.0-44.9, adult (Acute) Hypertension (Acute) Uterine myoma (Acute) Postmenopausal bleeding (Acute) Past Medical History Medical History Hx of Dao's palsy Opioid abuse Hypertension Family History Family History Father Hypertension Mother No problems noted. Sister Hemochromatosis Daughter Overdose Paternal Grandmother Myocardial infarction Surgical History Surgical History (Updated 02/07/24 @ 11:01 by Rebecca Madsen RN) Hx of cholecystectomy History of ERCP H/O gastric bypass Social History Social History Housing: Apartment Alcohol intake: current Alcohol intake frequency: holidays/special occasions only Patient Tobacco Use Status: Former Tobacco user Quit Date: 2011 Tobacco use type: Cigarette e-Cigarette/Vaping Use: Never Used service: No Current occupational status: unemployed Cognitive needs: No Hearing needs: No Vision needs: No Meds Allergies Allergy/AdvReac Type Severity Reaction Status Date / Time No Known Allergies Allergy Verified 02/07/24 11:16 Home Medications ?Medication ?Instructions ?Recorded ?Confirmed ?Last Taken ?Type buprenorphine 8 mg-naloxone 2 mg 16 mg sublingual DAILY 04/17/23 02/07/24 02/07/24 History sublingual film (Suboxone) Assessment and Plan Assessment Anesthesia Assessment: Chart Reviewed Documented by User: Harry Jeffery MD 02/07/24 12:01 [facility] Past Medical History Medical History Hx of Dao's palsy Opioid abuse Hypertension Patient : No Family History Family History Father Hypertension Mother No problems noted. Sister Hemochromatosis Daughter Overdose Paternal Grandmother Myocardial infarction Family history of problems with anesthesia: No Surgical History Surgical History (Updated 02/07/24 @ 11:01 by Rebecca Madsen RN) Hx of cholecystectomy History of ERCP H/O gastric bypass History of Problems with Anesthesia: No Social History Social History Housing: Apartment Alcohol intake: current Alcohol intake frequency: holidays/special occasions only Patient Tobacco Use Status: Former Tobacco user Quit Date: 2011 Tobacco use type: Cigarette e-Cigarette/Vaping Use: Never Used service: No Current occupational status: unemployed Cognitive needs: No Hearing needs: No Vision needs: No Meds Allergies Allergy/AdvReac Type Severity Reaction Status Date / Time No Known Allergies Allergy Verified 02/07/24 11:16 Home Medications ?Medication ?Instructions ?Recorded ?Confirmed ?Last Taken ?Type buprenorphine 8 mg-naloxone 2 mg 16 mg sublingual DAILY 04/17/23 02/07/24 02/07/24 History sublingual film (Suboxone) Exam Airway Mallampati Class: II TM Dist: >3cm Neck ROM: Full Partial: Upper Loose/Missing/Broken Teeth: Upper Heart: ok Lungs: ok Assessment and Plan Assessment Anesthesia Assessment: Anesthesia Plan Discussed Final Anesthetic Review Family History of Problems with Anesthesia: No History of Problems with Anesthesia: No NPO: Yes ASA Class: III Final Preanesthetic Review: No Changes in Pt Med Stat, Meds/Allgs Chart Reviewed, Consent Obtained/Reviewed and Anes Risks/Benef Reviewed Patient Risk: Intermediate Procedure Risk: Low Anesthetic Plan Anesthetic Plan: GA and Agree w/ Assess. and Plan Disposition: Standard PACU
[2024-02-07] VITALS (8 sets, daily range): BP systolic 112–133; BP diastolic 57–70; PULSE 51–65; RESP 16–18; TEMP 36.3–36.7; O2SAT 97–100; BMI 40.8
--- NOTE | 2024-02-07 11:21 | MHC.SHP ---
Pre-Procedural Eval Section A - 24 Hr Update-Section A only Date of Service: 02/07/24 The patient is an INPATIENT: No Changes since office visit: No Cold of Flu in the past 2 weeks, No New Medical Problems, No Changes in Medication and No Patient answered all questions The patient has been examined within 24 hours of the surgical procedure. The History & Physical has been completed within 30 days and I have reviewed it.: Yes Section B - Complete if H&P > 30 days Chief Complaint: Postmenopausal bleeding Allergies: Allergies Allergy/AdvReac Type Severity Reaction Status Date / Time No Known Allergies Allergy Verified 02/07/24 11:16 Plan Diagnosis/Plan: Unchanged I have reviewed the history and physical and performed a pertinent physical examination on my patient. No changes have occurred unless specified. Time Spent With Patient Time: Total time managing care of this patient today ____ minutes.
[2024-02-07] MEDS: Lactated Ringers 1,000 ML 100 ML IVCONT (11:43)
--- NOTE | 2024-02-07 12:38 | PM.OP ---
Brief Operative Note Date of Service: 02/07/24 Pre-op diagnosis: Recurrent postmenopausal bleeding, abnormal endometrium by ultrasound, large submucosal myoma 7.2 cm Post-op diagnosis: same (Endometrial polyp, large submucosal myoma) Procedure: Hysteroscopy D&C, Polypectomy, partial myomectomy Surgeon: Armando Pineda MD Anesthesia: GLMA Was an Hr Shared Services Consultant used for this Procedure?: No Estimated blood loss (mL): 0 Pathology: other (Endometrial Scrapping. Polyp, partial submucosal myoma) Condition: stable Disposition: PACU
--- NOTE | 2024-02-07 12:39 | P.OP_ITS ---
Operative Note Operative Note Date of Service: 02/07/24 Narrative: Preop Diagnosis: Recurrent postmenopausal bleeding, abnormal endometrium and large submucosal myoma by ultrasound Operation: Diagnostic Hysteroscopy, Dilataion & Curettage , polypectomy, partial myomectomy Post Op Diagnosis: Endometrial Polyp QBL: Minimal Anesthesia: GLMA Surgeon: Armando Pineda MD Criminal Justice Instructor: None Complication: None Pathology: Endometrial Scrapings, Endometrial polyp, partial myoma Procedure: The patient was put in the dorsal lithotomy position, scrubbed, and draped in the usual manner. A sterile speculum was inserted in the patient's vagina. The anterior lip of the cervix was grasped with a single tooth tenaculum. The cervix was dilated up to 5 mm, then the scope was inserted in the patient's uterus. Inspection revealed endometrial polyp. The Myosure Reach device was used; it was introduced through the operative channel and polypectomy done with no complications. In an effort to take a pathology sample from the submucosa myoma, and since the size of the myoma is large partial myomectomy was carried on. The scope was then taken out from the uterine cavity, sharp curettings was carried on with minimal to moderate amount of tissues retrieved. At the end of the procedure, all instruments were taken out of the patient uterine and vaginal cavity. The single tooth tenaculum was removed and homeostasis was assured using pressure,. The patient tolerated the procedure well and was transferred to the PACU in a stable condition.
== END 2024-02-07 14:20 | disposition home or self-care (01) ==
PROVIDERS: PCP Nurse Practitioner Family; Visit Provider Obstetrics & Gynecology
PROC: 0UDB8ZX Extraction of Endometrium, Via Natural or Artificial Opening Endoscopic, Diagnostic (ICD-10-PCS; CPT 58558; principal; 2024-02-07 12:40)
DX: N95.0 Postmenopausal bleeding (principal); D25.9 Leiomyoma of uterus, unspecified; N84.0 Polyp of corpus uteri; I10 Essential (primary) hypertension; F11.10 Opioid abuse, uncomplicated; Z98.84 Bariatric surgery status; Z87.891 Personal history of nicotine dependence; Z56.0 Unemployment, unspecified
CPT/HCPCS: 58561; 88305; 88341; 88342; 88360; J0131; J1885; J2405; J2704; J3010

== ENCOUNTER → 2024-02-07 10:46 | Outpatient (BNV) | payer OTHER, SELFPAY | PROVIDERS: PCP Nurse Practitioner Family; Visit Provider Obstetrics & Gynecology | DX: N95.0 Postmenopausal bleeding (principal); D25.9 Leiomyoma of uterus, unspecified | CPT/HCPCS: 58561 ==

== ENCOUNTER → 2024-02-12 15:30 | Outpatient (BNVA) | payer OTHER, SELFPAY | PROVIDERS: PCP Nurse Practitioner Family; Visit Provider Obstetrics & Gynecology ==

== ENCOUNTER 2024-02-13 07:27 | Outpatient (REF) | payer OTHER, SELFPAY | END 2024-02-13 07:28 | disposition home or self-care (01) | LOC: HO.LNP 07:27 | PROVIDERS: Visit Provider Obstetrics & Gynecology | DX: Z13.89 Encounter for screening for other disorder (principal) ==

== ENCOUNTER 2024-02-13 10:58 | Outpatient (REF) | payer OTHER, SELFPAY ==
--- NOTE | ~2024-02-13 | XR_ITS ---
EXAMINATION: XR CHEST 2 VIEW CLINICAL INFORMATION: Renal neoplasm COMPARISON: None TECHNIQUE: PA and lateral views of the chest obtained. FINDINGS: There are low lung volumes with crowding of basilar bronchovascular markings.. There are no pleural effusions. The cardiomediastinal silhouette is nonenlarged. Spondylotic changes are noted in the dorsal spine. XR/XR chest 2V IMPRESSION: Poor inspiration. No acute disease.
[2024-02-13 12:40] LABS: Blood Urea Nitrogen 12 mg/dL (9-16); Estimated Glomerular Filt Rate > 60
[2024-02-14 09:44] LABS: CA-125 16 U/mL (<35)
== END 2024-02-13 10:59 | disposition home or self-care (01) ==
LOC: HO.XRAY 10:58
PROVIDERS: PCP Internal Medicine Medical Oncology; Visit Provider Obstetrics & Gynecology
DX: C64.9 Malignant neoplasm of unspecified kidney, except renal pelvis (principal)
CPT/HCPCS: 36415; 71046; 82565; 84520; 86304

== ENCOUNTER 2024-02-18 12:46 | Outpatient (REF) | payer OTHER, SELFPAY ==
[2024-02-18 14:17] LABS: Blood Urea Nitrogen 13 mg/dL (9-16); Estimated Glomerular Filt Rate > 60
== END 2024-02-18 12:47 | disposition home or self-care (01) ==
LOC: HO.LAB 12:46
PROVIDERS: PCP Internal Medicine; Visit Provider Obstetrics & Gynecology
DX: C54.1 Malignant neoplasm of endometrium (principal)
CPT/HCPCS: 36415; 82565; 84520

== ENCOUNTER 2024-02-19 11:55 | Outpatient (REF) | payer OTHER, SELFPAY ==
--- NOTE | ~2024-02-19 | CT_ITS ---
EXAMINATION: CT ABDOMEN AND PELVIS WITHOUT AND WITH CONTRAST CLINICAL INFORMATION: Malignant neoplasm of unspecified uterus COMPARISON: Pelvic ultrasound 01/21/2024 TECHNIQUE: Multidetector volumetric imaging was performed of the abdomen and pelvis before and after the IV administration of 85 mL of Omnipaque 300 intravenous contrast. Sagittal and coronal reformatted images were obtained on the technologist's workstation. This CT examination was performed using dose optimization techniques as appropriate, variously including the following: *Automated exposure control *Adjustment of mA and/or kV according to patient size (this includes techniques or standardized protocols for targeted exams where dose is matched to indication/reason for exam; i.e. extremities or head) *Use of iterative reconstruction technique DLP: 982 mGy-cm FINDINGS: LUNG BASES: The visualized lung bases are unremarkable. LIVER, GALLBLADDER, AND BILIARY TREE: There is the presence of intrahepatic biliary air as well as distention of the central and left intrahepatic biliary radicals. The patient is status post cholecystectomy. The common duct itself is distended up to 18 mm, down to the level of the pancreatic head. There may be a little debris in the most distal common duct. MRCP would be helpful for further evaluation. No focal or suspicious hepatic mass. Gallbladder surgically absent. PANCREAS: Unremarkable SPLEEN: The spleen is slightly prominent and contains a few tiny punctate calcified granulomas. ADRENAL GLANDS: Unremarkable KIDNEYS AND URETERS: There is symmetric enhancement of the kidneys without calcification, suspicious solid mass, hydronephrosis or perinephric collection. There are 2 tiny low density structures in the right kidney measuring up to 4 mm likely cyst but considered to small to characterize. BLADDER: Unremarkable GASTROINTESTINAL TRACT: No bowel obstruction or right or left lower quadrant inflammatory change. Moderate hiatal hernia. Surgical changes are seen at the GE junction. ABDOMINAL WALL: No significant hernia is appreciated. LYMPH NODES: Normal VASCULAR: Unremarkable PELVIC VISCERA: Abnormal. There is an enlarged uterus with an ill-defined heterogeneous endometrium, measuring up to 55 mm AP. This was described on the recent pelvic ultrasound. Areas of heterogeneity, with in the myometrium are seen as well. Neoplasm to be excluded. No adnexal masses however no ascites or fluid in the cul-de-sac. OSSEOUS STRUCTURES: Spondylitic change in the lower thoracic spine. No fracture or destructive process. CT/CT abdomen pelvis wo/w IV con IMPRESSION: Abnormal appearing uterus as described above. No adjacent adenopathy or drainable collections. There is intrahepatic biliary ductal dilatation and dilatation of the common duct down to the level of the pancreatic head. MRCP would be helpful for further evaluation. Fleischner guidelines were followed.
[2024-02-19] MEDS: iohexoL 350 MG/ML 100 ML INFUS..BTL IV (14:30)
[2024-02-19] MEDS: Barium Sulfate Oral (Vanilla) 450 ML ORAL.SUSP 900 ML PO (14:31)
== END 2024-02-19 11:56 | disposition home or self-care (01) ==
LOC: HO.CT 11:55
PROVIDERS: PCP Internal Medicine Medical Oncology; Visit Provider Obstetrics & Gynecology
DX: C64.9 Malignant neoplasm of unspecified kidney, except renal pelvis (principal)
CPT/HCPCS: 74178; Q9967

== ENCOUNTER 2024-10-28 15:50 | Outpatient (AMB) | payer OTHER, SELFPAY ==
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
[2024-10-28 16:06] VITALS: BP 110/70; PULSE 75; TEMP 36.3; O2SAT 99; BMI 38.7
--- OUTSIDE RECORDS SUMMARY | 2024-10-28 18:35 | XMS_ITS | Continuity of Care Document ---
Author Organization [facility] [employer] Oncolog y Address [address] [place] [id number]- Care Team Providers Care Partner Marketing Intern Name Role Phone Gagan Lazo MD, Marbella Primary Care Physician [phone] [facility] [id number] Date(s): 08/04/24 - 10/07/24 [facility] [employer] Oncology [address] [place] [id number] Attending Physician: Cheryl Sandoval MD Admitting Physician: Cheryl Sandoval MD Referring Physician: Cheryl Sandoval MD Encounter Type: Pre-OutPatient One Time Allergies, Adverse Reactions, Alerts No Known Allergies Medications Albuterol (Eqv-ProAir HFA) Inhalation, Every 6 hours, 0 Refills, Maintenance, 08/09/23 1:39:00 PM EDT, Partial fill upon patient request if the prescription is for a schedule II opioid drug. Start Date: 08/09/23 Status: Ordered Repeat number: 1 dexamethasone 4 mg oral tablet 2 tablet = 8 mg, By Mouth, 2 times a day, Take 2 tablets at 8a & 2p day prior to chemo, day of,and day after, # 36 tablet, 0 Refills, Maintenance, 06/30/24 11:58:00 AM EDT, Tablet, [id number], replacing lost script, 158, cm, 06/29/24 15:44:00 EDT, Height, 108.4, kg, 06/29/24 14:42:00 EDT, Dry Weight Start Date: 06/30/24 Status: Ordered Quantity: 36.0 Unit: tablet Repeat number: 1 Lasix 20 mg oral tablet 1, capsule, By Mouth, Daily, Take in the morning daily for 3 days, # 3 capsule, Refills 0, Tot. Refills 0, Soft Stop, 09/15/24 4:36:00 PM EST, Route to Pharmacy Electronically, [id number], Partial fill upon patient request if the prescription is for a schedule II opioid drug., 158, cm, 09/15/24 16:26:00 EST, Height, 114.2, kg, 09/15/24 16:26:00 EST, Dry Weight Start Date: 09/15/24 Stop Date: 09/18/24 Status: Ordered Quantity: 3.0 Unit: capsule Repeat number: 1 lidocaine-prilocaine 2.5%-2.5% topical cream See Instructions, apply to [facility] 30-60min prior to each chemotherapy session, # 30 Gm, 2 Refills, Maintenance, 03/31/24 9:23:00 AM EDT, [facility], Partial fill upon patient request if the prescription is for a schedule II opioid drug., apply to [facility] 30-60min prior to each chemotherapy session, 160, cm, 03/31/24 8:47:00 EDT, Height, 106.4, kg, 03/31/24 8:47:00EDT, Dry Weight Start Date: 03/31/24 Status: Ordered Quantity: 30.0 Unit: g Repeat number: 3 MiraLax oral powder for reconstitution = 17 Gm, By Mouth, Daily, dissolve in water or juice, # 238 Gm, 1 Refills, Maintenance, 10/25/23 4:11:00 PM EST, REC Powder, [id number], Partial fill upon patient request if the prescription is for a schedule II opioid drug., 17 Gm By Mouth Daily,Instr:dissolve in water or juice, 163, cm, 10/25/23 14:54:00 EST, Height, 109, kg, 09/11/23 6:56:00 EST, Dry Weight Start Date: 10/25/23 Status: Ordered Quantity: 238.0 Unit: g Repeat number: 2 prochlorperazine 10 mg oral tablet 1 tablet = 10 mg, By Mouth, Every 6 hours, PRN Nausea, # 30 tablet, 2 Refills, Maintenance, 249:23:00 AM EDT, Tablet, [facility], Partial fill upon patient request if the prescription is for a schedule II opioid drug., 160, cm, 03/31/24 8:47:00 EDT, Height, 106.4, kg, 03/31/24 8:47:00 EDT, Dry Weight Start Date: 03/31/24 Status: Ordered Quantity: 30.0 Unit: tablet Repeat number: 3 Readi-Cat 2 Smoothie Creamy Vanilla 2% oral suspension See Instructions, If scan in the am, drink 1st bottle night before & 2nd bottle 90 min before scan. If scan after 12p, drink 1st bottle by 8a & 2nd bottle 90 min before. If scan after 4p, drink 1st bottle 6hrs before & 90 minutes before scan, # 2 each, 0 Refills, Maintenance, 07/20/24 4:21:00 PM EDT, [facility], Partial fill upon patient request if the prescription is for a schedule II opioid drug., If scan in the am, drink 1st bottle night before & 2nd bottle 90 min before scan. If scan after 12p, drink 1st bottle by 8a & 2nd bottle 90 min before. If scan after 4p, drink 1st bottle 6hrs before & 90 minutes before scan, 161, cm, 07/20/24 16:02:00 EDT, Height, 108.4, kg, 06/29/24 14:42:00 EDT, Dry Weight Start Date: 07/20/24 Status: Ordered Quantity: 2.0 Unit: each Repeat number: 1 Suboxone 8 mg-2 mg sublingual film 1 film, Sublingual, Daily, 0 Refills, Maintenance, 08/12/16 8:43:48 AM EDT Start Date: 08/12/16 Status: Ordered Repeat number: 1 Problem List Condition Confirmation Course Effective Dates Status Health St atus Informant Dao's palsy Confirmed Active Dilation of biliary tract Confirmed Active Headache Confirmed Active HTN (hypertension) Confirmed Active Hypokalemia Confirmed Active Leukocytosis Confirmed Active Opioid use disorder in remission Confirmed Active Mouth pain Confirmed Active Uterine cancer, sarcoma Confirmed Active Severe obesity Confirmed Active Social History Social History Type Response Smoking Status Former smoker, quit more than 30 days ago entered on: 10/25/23 Sex Sex Representation Female (finding) Patient Care team information Care Team Personnel Name: Shea Whipple RN Position: [facility] RN Member Role: Primary Care Nurse Name: Adilia Anderson RN Position: [facility] Onco RN Member Role: Primary Care Nurse Name: Cathy Mackey RN Position: [facility] Onco RN Member Role: Primary Care Nurse Name: Paige Pendleton RN Position: [facility] Onco RN Member Role: Primary Care Nurse Name: Julio Narvaez MD, Ye Wei Position: [facility] Physician - Gastroenterology Member Role: [employer] Consulting Physician Address: [address] [place] [address] Gastroenterology [place], [place] [address] Telecom: Name: Alexia Barnes RN Position: [facility] RN Member Role: Primary Care Nurse Name: Shellie Mcclain RN Position: [facility] RN Member Role: Primary Care Nurse Name: Terry Drew RN Position: [facility] Onco RN Member Role: Primary Care Nurse Name: Monica Causey RN Position: [facility] Onco RN Member Role: Primary Care Nurse Name: Gagan Lazo MD , Maliha France Position: Reference Physician Member Role: PCP Address: [address] [place] [id number] Telecom: Name: Antonietta Lake RN Position: [facility] Onco RN Member Role: Primary Care Nurse Care Team Related Persons Name: EDDIE JOHNS Name: ADILIA PAYNE Insurance Providers Guarantor name: THANIA PAYNE Health Plan Information #: 1 Payer: [employer] Member Number: [id number] Policy Number: NA Group Number: NA Health Plan Information #: 2 Payer: [employer] Member Number: [id number] Policy Number: NA Group Number: NA
== END 2024-10-28 16:56 | disposition home or self-care (01) ==
DX: Z00.00 Encounter for general adult medical examination without abnormal findings (principal); C54.1 Malignant neoplasm of endometrium; E66.01 Morbid (severe) obesity due to excess calories; Z68.41 Body mass index [BMI] 40.0-44.9, adult; C64.9 Malignant neoplasm of unspecified kidney, except renal pelvis; I10 Essential (primary) hypertension; M79.89 Other specified soft tissue disorders; R01.1 Cardiac murmur, unspecified

== ENCOUNTER → 2024-10-28 15:50 | Outpatient (BNVA) | payer OTHER, SELFPAY | DX: Z00.00 Encounter for general adult medical examination without abnormal findings (principal); I10 Essential (primary) hypertension; C54.1 Malignant neoplasm of endometrium; C64.9 Malignant neoplasm of unspecified kidney, except renal pelvis; M79.89 Other specified soft tissue disorders; R01.1 Cardiac murmur, unspecified; E66.01 Morbid (severe) obesity due to excess calories; Z68.38 Body mass index [BMI] 38.0-38.9, adult; Z68.41 Body mass index [BMI] 40.0-44.9, adult | CPT/HCPCS: 99396 ==

== ENCOUNTER → 2024-11-23 14:40 | Outpatient (REF) | payer OTHER, SELFPAY | LOC: HO.CARD 14:40 | PROVIDERS: PCP Internal Medicine | DX: R01.1 Cardiac murmur, unspecified (principal); M79.89 Other specified soft tissue disorders | CPT/HCPCS: 93306 ==

== ENCOUNTER → 2024-11-23 14:43 | Outpatient (BNV) | payer OTHER, SELFPAY | PROVIDERS: PCP Internal Medicine; Visit Provider Internal Medicine Cardiovascular Disease | DX: I51.7 Cardiomegaly (principal) | CPT/HCPCS: 93306; 93356 ==

== ENCOUNTER 2024-12-24 16:17 | Outpatient (REF) | payer OTHER, SELFPAY ==
--- OUTSIDE RECORDS SUMMARY | 2024-12-24 19:18 | XMS_ITS | Continuity of Care Document ---
Author Organization [facility] ter Address [address] [place] [id number]- Care Team Providers Care Inverform Machine Operator Name Role Phone Gagan Lazo MD, Maliha France Primary Care Physician [id number] Date(s): 12/08/24 - 12/08/[address] [address] Discharge Disposition: A-D/C Home Attending Physician: Ye Kim Jr, MD Admitting Physician: Ye Kim Jr, MD Referring Physician: Ye Kim Jr, MD Encounter Type: Disch Daystay Allergies, Adverse Reactions, Alerts No Known Allergies Medications Albuterol (Eqv-ProAir HFA) Inhalation, Every 6 hours, 0 Refills, Maintenance, 08/09/23 1:39:00 PM EDT, Partial fill upon patient request if the prescription is for a schedule II opioid drug. Start Date: 08/09/23 Status: Ordered Repeat number: 1 Hydrochlorothiazide = 25 mg, By Mouth, Daily, 0 Refills, Maintenance, 11/17/24 11:44:00 AM EST, Partial fill upon patientrequest if the prescription is for a schedule II opioid drug. Start Date: 11/17/24 Status: Ordered Repeat number: 1 lidocaine-prilocaine 2.5%-2.5% topical cream See Instructions, apply to [facility] 30-60min prior to each chemotherapy session, # 30 Gm, 2 Refills, Maintenance, 03/31/24 9:23:00 AM EDT, [facility], Partial fill upon patient request if the prescription is for a schedule II opioid drug., apply to [facility] 30-60min prior to each chemotherapy session, 160, cm, 03/31/24 8:47:00 EDT, Height, 106.4, kg, 03/31/24 8:47:00EDT, Dry Weight Start Date: 03/31/24 Status: Ordered Quantity: 30.0 Unit: g Repeat number: 3 MiraLax oral powder for reconstitution = 17 Gm, By Mouth, Daily, dissolve in water or juice, # 238 Gm, 1 Refills, Maintenance, 10/25/23 4:11:00 PM EST, REC Powder, [id number], Partial fill upon patient request if the prescription is for a schedule II opioid drug., 17 Gm By Mouth Daily,Instr:dissolve in water or juice, 163, cm, 10/25/23 14:54:00 EST, Height, 109, kg, 09/11/23 6:56:00 EST, Dry Weight Start Date: 10/25/23 Status: Ordered Quantity: 238.0 Unit: g Repeat number: 2 Suboxone 8 mg-2 mg sublingual film 1 film, Sublingual, Daily, 0 Refills, Maintenance, 08/12/16 8:43:48 AM EDT Start Date: 08/12/16 Status: Ordered Repeat number: 1 Suprep Bowel Prep Kit oral liquid See Instructions, as directed by office, # 1 kit, 0 Refills, Maintenance, 11/19/24 9:02:00 PM EST, [facility], Partial fill upon patient request if the prescription is for a scheduleII opioid drug., as directed by office, 158, cm, 11/17/24 11:40:00 EST, Height, 114.2, kg, 09/15/2416:26:00 EST, Dry Weight Start Date: 11/19/24 Status: Ordered Quantity: 1.0 Unit: kit Repeat number: 1 Problem List Condition Confirmation Course Effective Dates Status Health St atus Informant Dao's palsy Confirmed Active Dilation of biliary tract Confirmed Active Headache Confirmed Active HTN (hypertension) Confirmed Active Hypokalemia Confirmed Active Leukocytosis Confirmed Active Opioid use disorder in remission Confirmed Active Mouth pain Confirmed Active Uterine cancer, sarcoma Confirmed Active Severe obesity Confirmed Active Vital Signs Most recent to oldest [Reference Range]: 1 2 3 Height 160 cm (12/08/24 2:16 PM) Weight 106 kg (12/08/24 2:16 PM) Oxygen Saturation [94-100 %] 98 % (12/08/24 4:30 PM) 98 % (12/08/24 4:22 PM) 99 % (12/08/24 4:16 PM) Pulse Rate [55-90 bpm] 82 bpm (12/08/24 4:16 PM) 63 bpm (12/08/24 2:16 PM) Body Mass Index [18.5-24.99 kg/m2] 41.41 kg/m2 *>HHI* (12/08/24 2:16 PM) Blood Pressure [90-138/55-84 mm Hg] 100/51mm Hg (12/08/24 4:30 PM) 97/51mm Hg (12/08/24 4:22 PM) 100/51mm Hg (12/08/24 4:16 PM) Respiratory Rate [16-30 br/min] 15 br/min *L* (12/08/24 4:30 PM) 17 br/min (12/08/24 4:22 PM) 14 br/min *L* (12/08/24 4:16 PM) Temperature [96.8-100.4 DegF] 97.9 DegF (12/08/24 4:16 PM) 98.7 DegF (12/08/24 2:16 PM) Mode of Delivery (Oxygen) Room air (12/08/24 4:30 PM) Room air (12/08/24 4:22 PM) Room air (12/08/24 4:16 PM) Blood pressure sites Arm, left (12/08/24 4:30 PM) Arm, left (12/08/24 4:22 PM) Arm, left (12/08/24 4:16 PM) Temperature Route Temporal (12/08/24 4:16 PM) Temporal (12/08/24 2:16 PM) Dry Weight 106 kg (12/08/24 2:16 PM) Social History Social History Type Response Smoking Status Former smoker, quit more than 30 days ago entered on: 10/25/23 Sex Sex Representation Female (finding) Note * Amadeo WATTS, Hugh M: PERFORM Event Display: Discharge/Transfer Note Hospital Authored Date: [id number] Nursing Discharge Note Entered On: 12/08/2024 16:24 EST Performed On: 12/08/2024 16:23 EST by Hugh Childs RN Nursing Discharge Note 2 Discharge Time : 12/08/2024 16:48 EST Hugh Childs RN - 12/08/2024 16:49 EST Discharge Level of Care at Discharge : Home/[facility] Patient Left Unit Via : Wheelchair Patient Accompanied Off Unit with : Significant other DC Instructions Provided & Signed by Pt : Yes Patient Understands D/C Instructions : Yes Patient Instructions Discharge Signed : Yes Did Pt have Specialty Bed or Wound Vac : No Hugh Childs RN - 12/08/2024 16:23 EST * Hugh Childs RN: PERFORM Event Display: Patient Education/Instruction Authored Date: [id number] Inpatient Adult Discharge Instructions. [address] [address] Name: THANIA PAYNE : 1965?? Visit: 12/08/2024 13:28?? Current Date: 12/08/2024 16:24 ?? Account: [id number]?? Inpatient Adult Discharge Instructions We would like to thank you for allowing us to assist you with your healthcare needs. The following includes patient education materials and information regarding your injury/illness. Our entire staffstrives to provide an excellent experience for our patients and their families. PLEASE ENSURE YOU FOLLOW-UP PER THE INSTRUCTIONS BELOW! ?? YOUR OPINION IS IMPORTANT TO US! Please complete the survey you may receive by mail or email. Your feedback will be used to make improvements to the healthcare experiences of our patients and their families. Surveys are administered by [employer] ?? If further treatment with your primary care physician or another doctor is recommended, it is important for you to keep the appointment. Call your primary care physician or return to the Emergency Department immediately if your condition worsens, fails to improve, or new symptoms develop. If you need to find a doctor, you can call [facility] for a referral at [phone] or toll free at [phone]) or log in to [email or web address].. ?? [facility], in keeping with [facility] guidance, no longer requires face masks for staff, patientsor visitors in most situations. Similiar to time spent indoors at other locations, there is the chance that you were exposed to repiratory viruses during your time with us (such as flu or COVID-19). If you develop symptoms concerning for a viral respiratory infection, please seek testing (and treatment if indicated) from your medical provider or home test kit. ?? You can view and manage your care through the patient portal or by using a health care teressa of your choosing. [employer] is a website that allows you to securely view your medical information including your hospital discharge summary, office visit summaries, medications and follow-up visits. You can also request appointments, renew medications, and request access to your medical information using a health care teressa of your choosing, or just ask a question. You can enroll at [email or web address] or register during your next office visit. You have been discharged from [facility], Patient Care Unit: ENDO??. If you have any questions regarding these instructions, including results of studies pending, afteryou leave, please call us and we will be happy to assist you 06/05. [facility] Nursing Unit Direct Phone Number, for 06/05 contact and results of studies pending ENDO [address] [place] [address] Your Care Team Attending Physician Ye Kim Jr, MD?? Consulting Providers Ye Kim Jr, MD?? Discharging Providers Ye Kim Jr, MD Tests Performed Below is a partial list of the tests performed during your hospitalization. You may have had other tests and procedures not included in this list. Please discuss all test results with your provider. No tests performed during this visit.?? Primary Care Provider Maliha Gonzalez MD? Advance Directive Health Care Proxy on File Yes - Health Care Proxy Discharge Vitals Temperature: 98.7 DegF Height: 160 cm Pulse Rate: 82 bpm Weight: 106 kg Respiratory Rate: 17 br/min Body Mass Index:??41.41 kg/m2??Critical Systolic Blood Pressure: 97 mm Hg Body surface area: 2.17 Diastolic Blood Pressure:??51 mm Hg??Low ?? Oxygen Saturation: 98 % ?? Studies Pending All studies ordered during this hospital stay have been completed unless listed below. Please discuss all pending results with your provider listed above in these instructions. ?? No incomplete studies found?? What to do next Instructions From Your Doctor We completed your upper endoscopy today.?? There is NO evidence of prior fistulous connection between your intestine and stomach has healed.?? There is no evidence of persisting connection. Your colonoscopy was normal.?? There was some diverticulosis.?? There were also small hemorrhoids.?? No concerning findings. Please follow-up as scheduled. Please have MRI scan scheduled.? It is very important that you follow these instructions: ???You may have a mild sore throat or hoarseness after the procedure. This is because of the tube and the anesthetic.?You may feel nauseated today. This sometimes happens because of the medications that are used. This should get better within a few hours. If your nausea continues for more than 24 hours contact your doctor's office. .?Do not drive any motor vehicle or operate dangerous equipment. Weakness and lack of coordinationare the result of the medications that were administered during the procedure.?Do not conduct important business or sign any legal documents on the day of the procedure, sinceyou may feel drowsy from the medications that were administered today.?If you have redness or swelling at sites where medications were given, place a warm wet washcloth over the affected area for twenty minutes. If the symptoms persist for over two days please contact your doctor's office.?Call your doctor's office if you develop fever greater than 101 degrees or chills during the next 48 hours.?Please call for any issues or questions that may arise. Our office phone number is [phone] ? Orders? 12/08/24 16:20:00 EST?? Scheduled Follow-Up Appointments Saturday 3:40 PM EDT ?? With: Cheryl Sandoval MD Where: [facility] Oncology [address] 4th [place] [address] [place] [address]- Status: Pending Thursday Apr. 3, 2025 5:15 PM EDT ?? Where: [facility] [address] [place] [address]- Status: Pending You Need to Schedule the Following Appointments Follow Up with??Gagan Lazo MD , [place] Where: [address] [place] [address]- Discharge Medications THANIA PAYNE :1965 Visit Date:12/08/2024 Medications: Please continue your medications until treatment is completed or stopped by your provider. Medications not listed below should be discontinued. Discuss any questions related to medications with your provider. What How Much When Instructions Next Dose Unchanged Albuterol (Albuterol (Eqv- ProAir HFA)) Inhalation Every 6 hours Unchanged Buprenorphine-Naloxone (Suboxone 8 mg-2 mg sublingual film) 1 Film Sublingual Daily Unchanged Hydrochlorothiazide 25 Milligram Oral Daily Unchanged Lidocaine/ Prilocaine Topical (lidocaine-prilocaine 2.5%-2.5% topical cream) See instructions apply to [facility] 30-60min prior to each chemotherapy session ?? Unchanged magnesium/ potassium/ sodium sulfates (Suprep Bowel Prep Kit oral liquid) See instructions as directed by office ?? Unchanged Polyethylene Glycol 3350 (MiraLax oral powder for reconstitution) 17 gram Oral Daily dissolve in water or juice ?? Prescription Given During Visit No new medications prescribed at time of discharge.?? Laboratory Results Below is a partial list of the most recent Laboratory test results done prior to this discharge. You may have had other tests and procedures not included in this list. Please discuss all test resultswith your provider. Allergies (NKA means No Known Allergies) NKA Problems Active Problems??(10) Ado's palsy?? Dilation of biliary tract?? Headache?? HTN (hypertension)?? Hypokalemia?? Leukocytosis?? Mouth pain?? Opioid use disorder in remission?? Severe obesity?? Uterine cancer, sarcoma?? Education Materials Below is the list of Educational Leaflet Providered with your Discharge Instructions. [employer] Patient Education - Diverticulosis Discharge Instructions?? [employer] Patient Education - Surgery Medical Daystay Surgical Overnight Discharge Instructions?? Valuables and Belongings I fully understand and agree that [facility] accepts no responsibility for all my personal property including clothing, toilet articles, radios, jewelry, dentures, hearing aids, rings, money, or any other property that is in my possession or is brought to me after admission. I understand certain valuables may be placed in a hospital safe for a short period of time. I understand that the hospital is not liable for loss or damage due to accident, fire, or other natural occurrence while said property is in the safe. I accept full responsibility for any personal property that I keep with me, and will not hold the hospital responsible in case of loss or disappearance. I acknowledge that i have been encouraged to send valuables and belongings home. ? Other Discharge Information ? Case Management Discharge Plan?? Discharge Plan?? Discharge Level of Care at Discharge: Home/[facility] Care ?? Pulmonary Rehab Status?? Pulmonary Rehab Discharge Status?? Respiratory Rate: 17 br/min ? Common Emergency Awareness Tips IS IT A STROKE? Act FAST and Check for these signs: FACE Does the face look uneven? ARM Does one arm drift down? SPEECH Does their speech sound strange? TIME Call at any sign of stroke ?? Heart Attack Signs Chest discomfort: Most heart attacks involve discomfort in the center of the chest and lasts more than a few minutes, or goes away and comes back. It can feel like uncomfortable pressure, squeezing, fullness or pain. Discomfort in upper body: Symptoms can include pain or discomfort in one or both arms, back, neck, jaw or stomach. Shortness of breath: With or without discomfort. Other signs: Breaking out in a cold sweat, nausea, or lightheaded. Remember, MINUTES DO MATTER. If you experience any of these heart attack warning signs, call to get immediate medical attention! ?? Smoking can increase your chances of developing chronic health problems and can cause harmful effects to other family members in your house. If you smoke, you are strongly encouraged to quit. Please call [employer] at [phone] or [phone]-[employer] ([phone]) or log in to [email or web address] for referrals to smoking cessation programs. ?? 799 Suicide & Crisis Lifeline is available 06/05 if you or someone you know needs to find a reason to keep living. By calling 988 you'll be connected to a skilled, trained counselor at a crisis center in your area. INPATIENT DISCHARGE INSTRUCTIONS SIGNATURE PAGE THANIA PAYNE [facility]:[id number] Location:[facility] Registration Date and Time:12/08/2024 13:28 EST Primary Care Physician: Gagan Lazo MD , [place], Attending Physician: Julio Narvaez MD, Ye Wei, I THANIA PAYNE, have received the above patient education materials/instructions and have verbalized understanding. If ambulance or transport services are being used I further acknowledge being given a choice of service. ?? If you need to contact me, please call me at this number: . Patient/Bed Bug Exterminator Name: Patient/Bed Bug Exterminator Signature: Relationship to Patient: Witness Name/Signature: Date: * Hugh Childs RN: PERFORM Event Display: Patient Education Leaflets Authored Date: [id number] Diverticulosis Discharge Instructions ?? 680 Diverticulosis Discharge Instructions ??You must carefully read the Consumer Information Use and Disclaimer below in order to understand and correctly use this information?About this topicDiverticulosis is a problem of the large bowel or colon. The wall of the bowel becomes weak and pushes outward. They form balloon-like pouches called diverticula or tics. When you have hard stool, you strain to have a bowel movement. This raises the pressure in the bowel and causes pouches or bulges to form. Most often, they do not cause a problem. If they become infected, you have diverticulitis. If you have both bleeding and infection, it is diverticular disease.??What care is needed at home? Ask your doctor what you need to do when you go home. Make sure??you ask questions if you do not understand what the doctor says. ??? Eat more whole grains, vegetables, and fruits. ??? Do not wait to have a bowel movement. Go as soon as you have the??urge. ??? Drink 8 to 10 glasses of water each day. Talk to your doctor if you are??drinking less fluids due to a health problem. ??? Be active. Walk,garden, or do something active for 30 minutes or more on most days of the week. ??What follow-up care is needed?Your doctor may ask you to make visits to the office to check on your progress. Be sure to keep these visits.??What drugs may be needed?Most often with diverticulosis you will not need to take any drugs.??Will physical activity be limited?When you are in pain, you may need to rest in bed. To ease the pain, use a heat compress on your belly. This should last only for a few days.??What changes to diet are needed?Talk to your doctor about any changes you need to make to your diet.? You do not need to avoid seeds, nuts, corn, or other similar foods. ??? You will need to eat food rich in fiber and drink more water. o Eat 5 or more servings of fresh fruits and vegetables every day. o Eat 6 or more servings of whole-wheat grain breads and??cereals. ??? Try toget 25 to 30 grams of fiber every day. Read the labels to??learn how much fiber is in foods. ??? Donot drink coffee, tea, or beer, wine, and mixed drinks (alcohol). ??What problems could happen?You may develop diverticulitis, which may cause:? Pockets or pouches in your bowel may be infected or filled with pus. ??? Hole or tear in your bowel ??? Part of your bowel to become narrow ??? You to need surgery ??What can be done to prevent this health problem?The best way to keep from having diverticulosis is to keep your bowel movements soft and normal. To keep more pouches from forming:? Talk with your doctor about adding an vjpo-dyo-jspjdso (OTC) fiber??product to keep your stools soft. ??? Lim[place]ow much pain drugs you take. Overuse of some pain drugs can??cause hard stools; talk with your doctor. ??? When do I need to call the doctor? Signs of infection. These include a fever of 100.4??F (38??C) or higher,??chills. ??? Mild pain or cramping in the lower part of the belly ??? A feelingof bloating in the belly ??? Belly pain that gets worse ??? Blood in your stool ??? Upset stomach or throwing up ??? Stools get too loose or too hard ??? Long-term hard stools ??Teach Back: Helping You UnderstandThe Teach Back Method helps you understand the information we are giving you. After you talk with the staff, tell them in your own words what you learned. This helps to make sure the staff has described each thing clearly. It also helps to explain things that mayhave been confusing. Before going home, make sure you are able to do these:? I can tell you abo ut my condition. ??? I can tell you what changes I need to make with my diet or drugs. ??? I can tell you what I will do if I have pain or cramping in my lower belly??or I have more belly pain. ??Where can I learn more???FamilyDoctor.orghttp://familydoctor.org/familydoctor/en/diseases-conditio ns/div erticular-disease.htmlNHShttps://www.nhs.uk/conditions/xkfmlotqkuby-vbfrplw-igj- diverticulitis/LastReviewed Wztb0564-31-81Sxzvbxxs Information Use and Disclaimer:This generalized information is a limited summary of diagnosis, treatment, and/or medication information. It is not meant to be comprehensive and should be used as a tool to help the user understand and/or assess potential diagnostic and treatment options. It does NOT include all information about conditions, treatments, medications, side effects, or risks that may apply to a specific patient. It is not intended to be medical adviceor a substitute for the medical advice, diagnosis, or treatment of a health care provider based on the health care provider's examination and assessment of a patient???s specific and unique circumstances. Patients must speak with a health care provider for complete information about their health, medical questions, and treatment options, including any risks or benefits regarding use of medications. This information does not endorse any treatments or medications as safe, effective, or approved for treating a specific patient. [employer] and its affiliates disclaim any warranty or liabilityrelating to this information or the use thereof. The use of this information is governed by the Terms of Use, available at??https://www.[employer]/en/know/ktazeotz-gpalkpkjsqegf-guuhrYleg Updat ed 12/06/21? * Amadeo WATTS, Hugh France: PERFORM Event Display: Patient Education Leaflets Authored Date: [id number] Surgery Medical Daystay Surgical Overnight Discharge Instructions ?? 295 Medical Daystay/Surgical Overnight Discharge Instructions ? Since your coordination and judgment may be altered by medication and/or anesthesia, a responsible adult must drive you home from the hospital. ? If you have received medication for pain or sedation while under our care, you should not drive, operate machinery, drink alcohol, or sign any legal documents for 24 hours.?? You should have someone with you at home tonight. ? Remain at home the day of discharge.?? You may be up and about unless otherwise instructed by your physician. ? You may resume your daily prescription medication schedule.?? Any depressant medication should be avoided for 24 hours unless otherwise instructed by your surgeon or anesthesiologist. ? Call your physician for a follow-up appointment.? If you experience unusual or severe pain not relied by your pain medication, excessive bleedingor drainage, persistent nausea and vomiting, excessive swelling or redness, foul odor from incisionsite or fever over 100.6F, you need to call your physician. ? A follow-up phone call by a nurse will be made the day after your procedure.?? If you have stayed with us over night, you will not be receiving a follow-up phone call. ? Nausea and vomiting are a common side effect of prescription pain medication.?? We recommend that pills are not taken on an empty stomach.?? While taking any prescription pain medication you should not drive or drink alcohol. ? Patient Care team information Care Team Personnel Name: Shea Whipple RN Position: S RN Member Role: Primary Care Nurse Name: Adilia Anderson RN Position: S Onco RN Member Role: Primary Care Nurse Name: Cathy Mackey RN Position: S Onco RN Member Role: Primary Care Nurse Name: Paige Pendleton RN Position: [facility] Onco RN Member Role: Primary Care Nurse Name: Julio Narvaez MD, Ye Wei Position: [facility] Physician - Gastroenterology Member Role: [employer] Consulting Physician Address: [address] [place] [address] [place] [address]- Telecom: Name: Alexia Barnes RN Position: [facility] RN Member Role: Primary Care Nurse Name: Shellie Mcclain RN Position: [facility] RN Member Role: Primary Care Nurse Name: Terry Drew RN Position: [facility] Onco RN Member Role: Primary Care Nurse Name: Monica Causey RN Position: [facility] Onco RN Member Role: Primary Care Nurse Name: Gagan Lazo MD , Mal[place] Position: Reference Physician Member Role: PCP Address: [address] [place] [id number]- Telecom: Name: Antonietta Lake RN Position: [facility] Onco RN Member Role: Primary Care Nurse Care Team Related Persons Name: EDDIE JOHNS Name: ADILIA PAYNE Insurance Providers Guarantor name: [facility] Health Plan Information #: 1 Payer: [employer] Member Number: [id number] Policy Number: NA Group Number: [facility] Health Plan Information #: 2 Payer: [employer] Member Number: [id number] Policy Number: NA Group Number: NA
--- OUTSIDE RECORDS SUMMARY | 2024-12-24 19:18 | XMS_ITS | Continuity of Care Document ---
Author Organization [facility] Address [address] [place] [id number]- Care Team Providers Care Berry Grower Name Role Phone Gagan Lazo MD, Marbella Primary Care Physician Encounter [facility] Date(s): 11/17/24 - 12/17/24 [facility] [address] [place] [address]- Attending Physician: Lesa Little Admitting Physician: Lesa Little Referring Physician: Admtr [id number] Encounter Type: Triage Allergies, Adverse Reactions, Alerts No Known Allergies [...] 2.5%-2.5% topical cream See Instructions, apply to [facility] 30-60min prior to each chemotherapy session, # 30 Gm, 2 Refills, Maintenance, 03/31/24 9:23:00 AM EDT, [facility], Partial fill upon patient request if the prescription is for a schedule II opioid drug., apply to [facility] site 30-60min prior to each chemotherapy session, 160, cm, 03/31/24 8:47:00 EDT, Height, 106.4, kg, 03/31/24 8:47:00EDT, Dry Weight Start Date: 03/31/24 Status: Ordered Quantity: 30.0 Unit: g Repeat number: 3 MiraLax oral powder for reconstitution = 17 Gm, By Mouth, Daily, dissolve in water or juice, # 238 Gm, 1 Refills, Maintenance, 10/25/23 4:11:00 PM EST, REC Powder, [id number], Partial fill upon patient request if the [...] Team Personnel Name: Shea Whipple RN Position: [facility] RN Member Role: Primary Care Nurse Name: Adilia Anderson RN Position: [facility] Onco RN Member Role: Primary Care Nurse Name: Cathy Mackey RN Position: [facility] Onco RN Member Role: Primary Care Nurse Name: Paige Pendleton RN Position: [facility] Onco RN Member Role: Primary Care Nurse Name: Julio Narvaez MD, Ye Wei Position: [facility] Physician - Gastroenterology Member Role: [employer] Consulting Physician Address: [address] [place] [address] [place], [place] [id number] Telecom: Name: Alexia Barnes RN Position: [facility] RN Member Role: Primary Care Nurse Name: Shellie Mcclain RN Position: [facility] RN Member Role: Primary Care Nurse Name: Terry Drew RN Position: [facility] Onco RN Member Role: Primary Care Nurse Name: Monica Causey RN Position: [facility] Onco RN Member Role: Primary Care Nurse Name: Gagan Lazo MD , Maliha [place] Position: Reference Physician Member Role: PCP Address: [address] [place] [address] [address] [place] [address]- Telecom: Name: Antonietta Lake RN Position: [facility] Onco RN Member Role: Primary Care Nurse Care Team Related Persons Name: EDDIE JOHNS Name: ADILIA PAYNE Insurance Providers Guarantor name: [facility] Plan Information #: 1 Payer: [employer] Member Number: NA Policy Number: NA Group Number: NA
== END 2024-12-24 16:18 | disposition home or self-care (01) ==
LOC: HO.MAMMO 16:17
DX: Z12.31 Encounter for screening mammogram for malignant neoplasm of breast (principal)
CPT/HCPCS: 77063; 77067

== ENCOUNTER → 2024-12-24 16:30 | Outpatient (BNV) | payer OTHER, SELFPAY | PROVIDERS: Visit Provider Internal Medicine | DX: Z12.31 Encounter for screening mammogram for malignant neoplasm of breast (principal) | CPT/HCPCS: 77063; 77067 ==

== ENCOUNTER 2025-01-09 09:29 | Outpatient (REF) | payer OTHER, SELFPAY ==
[2025-01-09 10:00] LABS: MANUAL DIFF FLAG NO
[2025-01-09 10:16] LABS: Basophils Percent Auto 0.7 % (0-2); Eosinophils Absolute Auto 0.3 X10*3/uL (0.0-0.4); Eosinophils Percent Auto 6.8 % (0-4); Hemoglobin 9.2 g/dl (12.0-16.0); Imm Gran Abs Auto 0.01 X10*3/uL (0.00-0.03); Imm Gran Pct Auto 0.2 % (0.0-0.4); Lymphocytes Absolute Auto 0.9 X10*3/uL (1.2-4.9); Mean Corpuscular HGB Conc 27.9 g/dl (31.0-35.0); Mean Corpuscular Hemoglobin 19.5 pg (27.0-33.0); Mean Corpuscular Volume 69.8 fL (80.0-98.0); Mean Platelet Volume 9.2 fL (9.4-12.3); Monocytes Absolute Auto 0.4 X10*3/uL (0.1-1.2); Monocytes Percent Auto 10.4 % (2-11); Neutrophils Absolute Auto 2.5 x10*3/uL (2.0-8.3); Neutrophils Percent Auto 59.9 % (45-73); Platelet Count 236 X10*3/uL (160-400); Red Blood Count 4.73 X10*6/uL (4.20-5.50); Red Cell Distribution Width 21.1 % (11.0-16.0); White Blood Count 4.1 X10*3/uL (4.8-10.8)
[2025-01-09 10:41] LABS: B Type Natriuretic Peptide 58 pg/mL (<100)
[2025-01-09 10:46] LABS: Alanine Aminotransferase 30 U/L (0-31); Albumin Level 3.5 g/dL (3.5-5.0); Alkaline Phosphatase 156 U/L (39-117); Anion Gap 9 (12-20); Aspartate Amino Transferase 38 U/L (5-31); Bilirubin Total 0.4 mg/dL (0.0-1.0); Blood Urea Nitrogen 16 mg/dL (9-16); Calcium 8.8 mg/dL (8.4-10.2); Carbon Dioxide 24 mmol/L (22-29); Chloride 112 mmol/L (96-108); Cholesterol 111 mg/dL (<200); Estimated Glomerular Filt Rate > 60; Glucose Random 87 mg/dL (60-115); HDL Cholesterol 54 mg/dL (>40); LDL Cholesterol Calculated 47 mg/dL (<100); Potassium 3.8 mmol/L (3.3-5.1); Sodium 141 mmol/L (135-145); Total Protein 6.7 g/dL (6.5-8.0); Triglycerides 54 mg/dL (<150)
[2025-01-09 11:07] LABS: HBS Num1 8.54 mIU/mL (0-7.99); HBsAGNum1 0.33 S/CO (0.00-0.99); Hepatitis B Core Antibody Nonreactive (Nonreactive); Hepatitis B Surface Antigen Negative (Negative)
[2025-01-09 11:09] LABS: TSH reflex Free T4 1.82 uIU/mL (0.32-4.0); Vitamin D 25-OH Total 18.7 ng/mL (>30)
[2025-01-09 11:14] LABS: Folate 17.2 ng/mL (> or = 4.0); Vitamin B12 400 pg/mL (200-900)
[2025-01-09 12:24] LABS: HBS Num2 8.92 mIU/mL (0-7.99); HBS Num3 8.79 mIU/mL (0-7.99); ~Hepatitis B Surface Antibody GRAYZONE (Nonreactive)
[2025-01-12 22:57] LABS: Rubella IgG Antibody 3.63 Index; Rubeola IgG (Measles) <13.50 AU/mL; Varicella IgG Antibody 6.19 S/CO
== END 2025-01-09 09:30 | disposition home or self-care (01) ==
LOC: HO.LAB 09:29
DX: Z00.00 Encounter for general adult medical examination without abnormal findings (principal); M79.89 Other specified soft tissue disorders; E78.00 Pure hypercholesterolemia, unspecified
CPT/HCPCS: 36415; 80053; 80061; 82306; 82607; 82746; 83880; 84443; 85025; 86704; 86706; 86735; 86762; 86765; 86787; 87340